=== PATIENT | female | born 1980 | race Caucasian/White ===

== ENCOUNTER 2023-09-14 11:05 | Outpatient (REF) | payer OTHER, SELFPAY ==
[2023-09-14 13:41] LABS: Hematocrit 27.7 % (37.0-47.0); Hemoglobin 7.1 g/dl (12.0-16.0); Mean Corpuscular HGB Conc 25.6 g/dl (31.0-35.0); Mean Corpuscular Hemoglobin 16.9 pg (27.0-33.0); Mean Corpuscular Volume 65.8 fL (80.0-98.0); NRBC Pct Auto 1.1 /100WBC (0.0-0.2); PLT CLUMP 1; Red Blood Count 4.21 X10*6/uL (4.20-5.50); Red Cell Distribution Width 20.7 % (11.0-16.0); White Blood Count 12.6 X10*3/uL (4.8-10.8)
[2023-09-14 14:01] LABS: Carbon Dioxide 22 mmol/L (22-29)
[2023-09-14 14:02] LABS: Mean Platelet Volume 10.1 fL (9.4-12.3); Platelet Count 343 X10*3/uL (160-400)
[2023-09-14 14:03] LABS: Anion Gap 14 (12-20); Blood Urea Nitrogen 8 mg/dL (9-16); Calcium 9.2 mg/dL (8.4-10.2); Chloride 106 mmol/L (96-108); Estimated Glomerular Filt Rate > 60; Glucose Random 91 mg/dL (60-115); Iron 26 mcg/dL (30-160); Percent Iron Saturation 7 % (15-50); Potassium 4.4 mmol/L (3.3-5.1); Sodium 138 mmol/L (135-145); Total Iron Binding Capacity 389 mcg/dL (228-428); Unsaturated Iron Binding 363 ug/dL
[2023-09-14 14:07] LABS: Atypical Lymph Absolute Manual 0.1 x10*3/uL; Atypical Lymphs Percent Manual 1 % (0-6); Band Neutrophils Percent 3 % (3-5); Basophils Abs Manual 0.3 X10*3/uL (0.0-0.2); Basophils Percent Manual 2 % (0-2); Eosinophils Absolute Manual 0.3 X10*3/uL (0.0-0.4); Eosinophils Percent Manual 2 % (0-4); Lymphocytes Absolute Manual 2.3 X10*3/uL (1.2-4.9); Lymphocytes Percent Manual 18 % (20-40); Metamyelocytes Absolute 0.4 X10*3/uL; Metamyelocytes Percent 3 %; Monocytes Absolute Manual 0.3 X10*3/uL (0.1-1.2); Monocytes Percent Manual 2 % (2-11); Neutrophils Absolute Manual 9.1 X10*3/uL (2.0-8.3); Neutrophils Percent Manual 69 % (45-73); Nucleated Red Blood Cells 4 /100WBC (0-0)
[2023-09-14 14:08] LABS: Hypochromasia 1+ (5-14) /OIF; Microcytosis 2+ (15-30) /OIF; Ovalocytes 1+ (5-14) /OIF; Polychromasia 1+ (0-2) /OIF; RBC Morphology NOTED; Schistocytes 1+ (0-2) /OIF; Tear Drop Cells 1+ (0-2) /OIF
[2023-09-14 14:09] LABS: Large Platelet PRESENT; Platelet Estimate NORMAL (NORMAL); Platelet Morphology Comment NOTED
[2023-09-14 14:19] LABS: Ferritin 7 ng/mL (10-250)
== END 2023-09-14 11:06 | disposition home or self-care (01) ==
LOC: HO.HHCL 11:05
PROVIDERS: Visit Provider Internal Medicine Geriatric Medicine
DX: D64.9 Anemia, unspecified (principal)
CPT/HCPCS: 36415; 80048; 82728; 83540; 85007; 85025; 85027

== ENCOUNTER 2023-09-21 14:43 | Outpatient (REF) | payer OTHER, SELFPAY ==
[2023-09-21 16:10] LABS: MANUAL DIFF FLAG NO
[2023-09-21 16:25] LABS: Basophils Absolute Auto 0.1 X10*3/uL (0.0-0.2); Basophils Percent Auto 0.6 % (0-2); Eosinophils Absolute Auto 0.2 X10*3/uL (0.0-0.4); Eosinophils Percent Auto 1.2 % (0-4); Hematocrit 28.6 % (37.0-47.0); Hemoglobin 7.3 g/dl (12.0-16.0); Imm Gran Abs Auto 0.09 X10*3/uL (0.00-0.03); Imm Gran Pct Auto 0.7 % (0.0-0.4); Lymphocytes Absolute Auto 2.4 X10*3/uL (1.2-4.9); Lymphocytes Percent Auto 19.9 % (20-40); Mean Corpuscular HGB Conc 25.5 g/dl (31.0-35.0); Mean Corpuscular Volume 66.5 fL (80.0-98.0); Mean Platelet Volume 10.4 fL (9.4-12.3); Monocytes Absolute Auto 0.6 X10*3/uL (0.1-1.2); Monocytes Percent Auto 4.9 % (2-11); NRBC Pct Auto 0.2 /100WBC (0.0-0.2); Neutrophils Absolute Auto 8.9 x10*3/uL (2.0-8.3); Neutrophils Percent Auto 72.7 % (45-73); Platelet Count 523 X10*3/uL (160-400); Red Cell Distribution Width 19.9 % (11.0-16.0); White Blood Count 12.3 X10*3/uL (4.8-10.8)
[2023-09-21 17:04] LABS: TSH reflex Free T4 0.66 uIU/mL (0.32-4.0)
== END 2023-09-21 14:44 | disposition home or self-care (01) ==
LOC: HO.HHCL 14:43
PROVIDERS: Visit Provider Nurse Practitioner Family
DX: D50.8 Other iron deficiency anemias (principal)
CPT/HCPCS: 36415; 84443; 85025

== ENCOUNTER → 2023-10-19 11:17 | Outpatient (BNV) | payer OTHER, SELFPAY | PROVIDERS: PCP Nurse Practitioner Family; Referring Provider Nurse Practitioner Family; Visit Provider Internal Medicine | DX: D50.9 Iron deficiency anemia, unspecified (principal) | CPT/HCPCS: 99204 ==

== ENCOUNTER 2024-09-09 13:09 | Outpatient (REF) | payer OTHER, SELFPAY ==
--- OUTSIDE RECORDS SUMMARY | 2024-09-09 14:40 | XMS_ITS | Encounter Summary ---
Author Organization [employer] Address [address] [place] [address] Care Team Providers Care Sales Agent Insurance Name Role Phone Edith Dominguez CLINICAL FIELD SPECIALIST Primary Care Provider [phone] Reason for Visit * Reason Comments Follow-up 3 month follow up Encounter Details Date Type Department Care Team ([facility] st Contact Info) Description 09/07/2024 9:15 AM EDT Office Visit Bariatric Surgery - [place] [address] [place] [address] Aleah Reynolds PA [address] [place] [address] Class 3 severe obesity due to excess calories with serious comorbidity and body mass index (BMI) of 45.0 to 49.9 in adult (CMS/HCC) (Primary Dx); Dysuria Social History Tobacco Use Types Packs/Day Years Used Date Smoking Tobacco: Never Smokeless Tobacco: Never Alcohol Use Standard Drinks/Week Comments Not Currently 0 (1 standard drink = 0.6 oz pur e alcohol) Comments Unknown Sex and Gender Information Value Date Recorded Sex Assigned at Not on file Legal Sex Female 4:47 PM EST Gender Identity Not on file Sexual Orientation Not on file documented as of this encounter Last Filed Vital Signs Vital Sign Reading Time Taken Comments Blood Pressure 156/86 09/07/2024 9:18 AM EDT Pulse 98 09/07/2024 9:18 AM EDT Temperature 36.6 ??C (97.8 ??F) 09/07/2024 9:18 AM ED T Respiratory Rate - - Oxygen Saturation - - Inhaled Oxygen Concentration - - Weight 103 kg (227 lb) 09/07/2024 9:18 AM EDT Height 149.9 cm (4' 11 ) 09/07/2024 9:18 AM EDT Body Mass Index 45.85 09/07/2024 9:18 AM EDT documented in this encounter Functional Status * Are you deaf or do you have serious difficulty hearing? Answer Date of Assessment Author No 08/29/2024 11:10 AM Lazaro Perez RN * Are you blind or do you have serious difficulty seeing, even when wearing glasses? Answer Date of Assessment Author No 08/29/2024 11:10 AM Lazaro Perez RN * Do you have serious difficulty walking or climbing stairs? Answer Date of Assessment Author No 08/29/2024 11:10 AM Lazaro Perez RN * Do you have serious difficulty dressing or bathing? Answer Date of Assessment Author No 08/29/2024 11:10 AM Lazaro Perez RN * Because of a physical, mental, or emotional condition, do you have serious difficulty doing errandsalone such as visiting the doctor? Answer Date of Assessment Author No 08/29/2024 11:10 AM Lazaro Perez RN documented as of this encounter Mental Status * Because of a physical, mental, or emotional condition, do you have serious difficulty concentrating, remembering, or making decisions? (5 years old or older) Answer Entry Date Author No 08/29/2024 11:10 AM Lazaro Perez RN documented in this encounter Ordered Prescriptions Prescription Sig Dispense Quantity Refills Last Filled Start Date End Date docusate sodium (Colace) 100 mg capsule Take 1 capsule (100 mg total) by mouth 2 (two) times a day if needed for constipation. 180 each 09/07/2024 documented in this encounter Progress Notes * MICHAEL Gaines - 09/07/2024 9:15 AM EDT Alva Rivera is a 44 y.o. year old female who presents for follow up regarding obesity. 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 Also noted to have leukocytosis of 16.5 with questionable UA Patient does complain of occasional dysuria Appointment in the office was on 07/05/2024 - 5 lbs since last appt She is increasing her Zepbound to 5 mg this week No nausea or vomiting No abdominal pain Feels well overall Continues to take multivitamins No other concerns or complaints Interested in: medication and or surgery Goals of Program: no specific goal weight in mind Self regeral Was in [facility] at the beginning of COVID Was supposed to have a sleeve Lost 25 lbs in the program Got scared due to COVID and stopped following up Previously taken Phentermine In and out of the hospital for heart palpitations Eating Habits: Eats late at night Big portion sizes Emotional eater Likes to eat spicy things - cox Salty, crackers chips Not big into dessert Water Crystal light Occasional Sprite Rare coffee Physical Activity: Limited Takes walks around the block occaisonally Sometimes goes to [employer] w/ sister Treadmill at home PMHx: 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 [place] but no formal test Medications: Amlodpine Lisinopril Atorvastatin PSHx: x4 Social Habits: No alcohol use No drugs Non smoker Body mass index is 45.85 kg/m??. ROS: GENERAL: No malaise, significant unintentional weight loss, fever, chills or night sweats. RESPIRATORY: No cough, wheezing or shortness of breath CARDIOVASCULAR: No chest pain, leg swelling or palpitations. GI: No abdominal discomfort, nausea, vomiting, or change in bowel habits. : No dysuria, frequency or incontinence. SKIN: No lesions, rash or itching. HEMATOLOGY/LYMPHOLOGY No prolonged bleeding, easy bruisability or swollen nodes. MUSCULOSKELETAL: No abnormalities. NEURO: No abnormalities. The remainder of the review of systems is noncontributory PAST MEDICAL HISTORY: Patient Active Problem List Diagnosis Allergic rhinitis Anemia Diabetes mellitus (CMS/HCC) Generalized anxiety disorder High blood pressure Insomnia Major depressive disorder Skin lesion Vitamin D deficiency Class 3 severe obesity due to excess calories with serious comorbidity and body mass index (BMI) of45.0 to 49.9 in adult ([facility]) PAST SURGICAL HISTORY: No past surgical history on file. SOCIAL HISTORY: Social History Tobacco Use Smoking status: Never Smokeless tobacco: Never Substance Use Topics Alcohol use: Not Currently FAMILY HISTORY: No family history on file. No family status information on file. MEDICATIONS: There are no discontinued medications. ACTIVE MEDICATIONS: No outpatient medications have been marked as taking for the 09/07/24 encounter (Office Visit) with MICHAEL Gaines. ALLERGIES: No Known Allergies PHYSICAL EXAM: Visit Vitals BP (!) 156/86 Pulse 98 Temp 36.6 ??C (97.8 ??F) (Temporal) Ht 1.499 m (59 ) Wt 103 kg (227 lb) BMI 45.85 kg/m?? Smoking Status Never BSA 1.95 m?? APPEARANCE: Alert and in no acute distress EYES: Conjunctiva normal and sclera normal and anicteric. LUNG: Chest no retractions. ABDOMEN: Soft, non-tender, without organomegaly or palpable masses. EXTREMITIES: Extremities warm and well perfused without clubbing, cyanosis, or edema. SKIN: Skin color and texture normal. No rashes or lesions. ASSESSMENT: 1. Class 3 severe obesity due to excess calories with serious comorbidity and body mass index (BMI)of 45.0 to 49.9 in adult ([facility]) PLAN: 1. Obesity - Continue on Zepbound Will titrate dose accordingly Reviewed side effects and expected weight loss Continue daily vitamin Follow up with relief pharmacist as needed Follow up in 8-12 weeks 2. Dysuria - Leukocytosis evident from ER visit on 08/29/2024 UA contaminated but could be mild UTI Repeat UA Medication and lab orders: No orders of the defined types were placed in this encounter. Other orders: None cc: RL Larsen documented in this encounter Plan of Treatment Upcoming Encounters Date Type Department Care Team (Late st Contact Info) Description 12/08/2024 9:15 AM EDT Office Visit Bariatric Surgery - [place] [address] [address] [facility] [address] [place] [address] Aleah Reynolds PA [address] [facility] [address] [place] [address] documented as of this encounter Visit Diagnoses Diagnosis Class 3 severe obesity due to excess calories with serious comorbidity and body mass index (BMI) of 45.0 to 49.9 in adult ([facility])- Primary Dysuria documented in this encounter Discontinued Medications Medication Sig Discontinue Reason Start Date End Da te semaglutide (Wegovy) 1.7 mg/0.75 mL injection pen Inject 1.7 mg under the skin every 7 (seven) days. 06/28/2024 09/07/2024 documented as of this encounter Care Teams Sales Agent Insurance Relationship Specialty Start Date End Date Edith Dominguez FNP [address] [place] [address] PCP - General Nurse Practitioner 09/07/24 documented as of this encounter
--- OUTSIDE RECORDS SUMMARY | 2024-09-09 14:40 | XMS_ITS | Clinical Summary ---
Author Organization 175 [facility] Address [address] [place] [phone] Phone Care Team Providers Care [employer] Agent Name Role Phone Edith Dominguez RL Primary Care Provider [phone] Allergies No known active allergies Medications ALBUTEROL INHL Inhale into the lungs. Active amLODIPine-steph rvastatin (CADUET) 10-10 mg per tablet Take 1 tablet by mouth 1 (one) time each day. Active ASCORBIC ACID, VITAMIN C, ORAL Take by mouth. Active lisinopriL (PRINIVIL,ZEST RIL) 20 mg tablet Take 1 tablet (20 mg total) by mouth 1 (one) time each day. Active traZODone (DESYREL) 50 mg tablet Take 1 Tablet by mouth at bedtime. Active tirzepatide, weight loss, (Zepbound) 2.5 mg/0.5 mL solution Inject 2.5 mg under the skin every 7 (seven) days. 2 mL 5 Active tirzepatide, weight loss, (Zepbound) 5 mg/0.5 mL injection Inject 0.5 mL (5 mg total) under the skin every 7 (seven) days. 2 mL 5 Active senna (SENOKOT) 8.6 mg tablet Take 1 tablet (8.6 mg total) by mouth 1 (one) time each day for 14 days. 14 each 5 09/13/19 25 Active docusate sodium (Colace) 100 mg capsule Take 1 capsule (100 mg total) by mouth 2 (two) times a day if needed for constipatio n. 180 each 5 12/07/19 25 Active semaglutide (Wegovy) 1.7 mg/0.75 mL injection pen Inject 1.7 mg under the skin every 7 (seven) days. 3 mL 4 09/08/19 25 Discontinued Active Problems Problem Noted Date Diagnosed Date Class 3 severe obesity due t o excess calories with serious comorbidity and body mass index (BMI) of 45.0 to 49.9 in adult 04/14/2024 Allergic rhinitis 06/15/2018 Anemia 06/15/2018 Diabetes mellitus 06/15/2018 Generalized anxiety disorder 06/15/2018 High blood pressure 06/15/2018 Insomnia 06/15/2018 Major depressive disorder 06/15/2018 Skin lesion 06/15/2018 Vitamin D deficiency 06/15/2018 Encounters Date Type Department Care Team Description 09/07/2024 9:15 AM EDT Office Visit Bariatric Surgery [address] [phone] Aleah Reynolds PA Class 3 severe obesity due to excess calories with serious comorbidity and body mass index (BMI) of 45.0 to 49.9 in adult ([facility]) (Primary Dx); Dysuria 08/29/2024 11:01 AM EST - 08/29/2024 4:11 PM EST Emergency [facility] Emergency [address] [place] [phone] Hina Ramos DO Fecal impaction ([facility]) (Primary Dx) Discharge Disposition: Home or Self Care 07/19/2024 Telephone Bariatric Surgery [address] [phone] Aleah Reynolds PA 07/05/2024 10:00 AM EST Office Visit Bariatric Surgery [address] [phone] Aleah Reynolds PA Class 3 severe obesity due to excess calories with serious comorbidity and body mass index (BMI) of 45.0 to 49.9 in adult (CMS/HCC) (Primary Dx) from Last 3 Months Medical History Medical History Date Comments Hypertension Anxiety Depression Asthma Social History Tobacco Use Types Packs/Day Years Used Date Smoking Tobacco: Never Smokeless Tobacco: Never Tobacco Cessation:Counseling Given: Not Answered Alcohol Use Standard Drinks/Week Comments Not Currently 0 (1 standard drink = 0.6 oz pur e alcohol) Comments Unknown Sex and Gender Information Value Date Recorded Sex Assigned at Not on file Legal Sex Female 4:47 PM EST Gender Identity Not on file Sexual Orientation Not on file Obstetrics History Last Filed Vital Signs Vital Sign Reading Time Taken Comments Blood Pressure 156/86 09/07/2024 9:18 AM EDT Pulse 98 09/07/2024 9:18 AM EDT Temperature 36.6 ??C (97.8 ??F) 09/07/2024 9:18 AM ED T Respiratory Rate 20 08/29/2024 2:32 PM EST Oxygen Saturation 98% 08/29/2024 2:32 PM EST Inhaled Oxygen Concentration - - Weight 103 kg (227 lb) 09/07/2024 9:18 AM EDT Height 149.9 cm (4' 11 ) 09/07/2024 9:18 AM EDT Body Mass Index 45.85 09/07/2024 9:18 AM EDT Plan of Treatment Upcoming Encounters Date Type Department Care Team (Late st Contact Info) Description 12/08/2024 9:15 AM EDT Office Visit Bariatric Surgery - [place] [address] [phone] Aleah Reynolds PA [address] [address] Health Maintenance Due Date Last Done Comments Breast Cancer Screening 1982 Diabetes: Annual Foot Exam 1992 Diabetes: Annual Retina Eye Exam 1992 Hepatitis B Vaccines (1 of 3 - 19+ 3-dose series) 2001 Pneumococcal Vaccine: Pediatrics (0 to 5 Years) and At-Risk Patients (6 to 64 Years) (1 of 2 - PCV) 2001 Cervical Cancer Screening: P ap Smear 2003 HIV Screening 05/28/2022 Hepatitis C Screening 05/28/2022 Medicare Annual Wellness Visit 05/28/2022 Social Influencers of Health Screening 05/28/2022 Diabetes: Annual Urine Albumin-Creatinine Ratio (uACR) 06/13/2022 DTaP,Tdap,and Td Vaccines (2 - Td or Tdap) 05/02/2023 05/02/2013 COVID-19 Vaccine (1 - 2023-2 5 season) 2024 Influenza Vaccine (#1) 2024 05/02/2013 Diabetes: Blood Sugar Contro l Test (HGBA1C) 05/20/2024 11/18/2023, 11/18/2023 Depression Screening 07/28/2024 07/28/2023 Diabetes: Annual GFR (Glomerular Filtration Rate) 08/29/2025 08/29/2024, 11/18/2023, 11/18/2023 Hypertension/CHF/CAD Annual BMP Blood Test 08/29/2025 08/29/2024, 11/18/2023, 11/18/2023 Cholesterol Screening (Lipid Panel) 11/17/2028 11/18/2023, 11/18/2023 HIB Vaccines Aged Out No longer eligi ble based on patient's age to complete this topic HPV Vaccines Aged Out No longer eligi ble based on patient's age to complete this topic Hepatitis A Vaccines Aged Out No long er eligible based on patient's age to complete this topic IPV Vaccines Aged Out No longer eligi ble based on patient's age to complete this topic MMR Vaccines Aged Out No longer eligi ble based on patient's age to complete this topic Meningococcal ACWY Vaccine Aged Out N o longer eligible based on patient's age to complete this topic Meningococcal B Vacine Aged Out No lo nger eligible based on patient's age to complete this topic RSV Immunization Patients Under 20 months Aged Out No longer eligible b ased on patient's age to complete this topic Varicella Vaccines Aged Out No longer eligible based on patient's age to complete this topic Procedures Procedure Name Priority Date/Time Associated Diagnosis Comments HOOKER URINE CULTURE TUBE Routine 09/08/2024 11:58 AM EDT Dysuria URINALYSIS WITH REFLEX MICROSCOPIC AND CULTURE Routine 09/08/2024 11:58 AM EDT Dysuria URINALYSIS WITH REFLEX MICROSCOPIC AND CULTURE Routine 09/08/2024 11:58 AM EDT Dysuria HOOKER URINE CULTURE TUBE STAT 08/29/2024 2:48 PM EST URINALYSIS WITH REFLEX MICROSCOPIC AND CULTURE STAT 08/29/2024 2:48 PM EST URINALYSIS WITH REFLEX MICROSCOPIC AND CULTURE STAT 08/29/2024 2:48 PM EST CULTURE URINE STAT 08/29/2024 2:[address] ABDOMEN PELVIS W CONTRAST STAT 08/29/2024 1:36 PM EST HCG, SERUM, QUALITATIVE STAT Add-on 08/29/2024 8:28 AM EST CBC WITH AUTO DIFFERENTIAL STAT 08/29/2024 8:28 AM EST COMPREHENSIVE METABOLIC PANEL STAT 08/29/2024 8:28 AM EST CBC AND DIFFERENTIAL STAT 08/29/2024 8:28 AM EST HEMOGLOBIN A1C Routine 11/18/2023 LIPID PANEL Routine 11/18/2023 from Last 3 Months or Most Recently Relevant to Health Maintenance Results * (ABNORMAL) Urinalysis with reflex microscopic and culture (09/08/2024 11:58 AM EDT) Only the most recent of2 resultswithin the time period is included. Specific [place] Urine 1.027 1.003 - 1.030 LAB URINALYSIS - AUTOMATED METHOD 09/08/2024 1:11 PM EDT [facility] pH, Urine 5.5 5.0 - 8.0 pH LAB URINALYSIS - AUTOMATED METHOD 09/08/2024 1:11 PM EDT [facility] Leukocytes, Urine Negative Negative LAB URINALYSIS - AUTOMATED METHOD 09/08/2024 1:11 PM EDT [facility] Nitrite, Urine Negative Negative LAB URINALYSIS - AUTOMATED METHOD 09/08/2024 1:11 PM EDT [facility] Protein, Urine Trace <=Trace mg/dL LAB URINALYSIS - AUTOMATED METHOD 09/08/2024 1:11 PM EDT [facility] Glucose, Urine Negative Negative mg/dL LAB URINALYSIS - AUTOMATED METHOD 09/08/2024 1:11 PM EDT [facility] Ketones, Urine Trace(A) Negative mg/dL LAB URINALYSIS - AUTOMATED METHOD 09/08/2024 1:11 PM [facility] Urobilinogen, Urine 1.0 0.2 - 1.0 mg/dL LAB URINALYSIS - AUTOMATED METHOD 09/08/2024 1:11 PM [facility] Bilirubin, Urine Negative Negative LAB URINALYSIS - AUTOMATED METHOD 09/08/2024 1:11 PM [facility] Blood, Urine Negative Negative LAB URINALYSIS - AUTOMATED METHOD 09/08/2024 1:11 PM [facility] Urine Urine specimen obtained by clean catch procedure / Unknown Non-blood Collection / Unknown 09/08/2024 11:58 AM EDT 09/08/2024 1:04 PM EDT us Aleah RODRIGUEZ LAB URINE ORDERABLES Final R esult [facility] [address] [place] [address], * Hooker urine culture tube (09/08/2024 11:58 AM EDT) Only the most recent of2 resultswithin the time period is included. Extra Tube Hold for add-ons. 09/08/2024 3:02 PM EDT [facility] Comment:Auto resulted. Urine Urine specimen obtained by clean catch procedure / Unknown Non-blood Collection / Unknown 09/08/2024 11:58 AM EDT 09/08/2024 1:04 PM EDT Aleah RODRIGUEZ LAB URINE ORDERABLES Final R esult Performing Organization Address [facility] [[email or web address]] Co de Phone Number [facility] [address] [place] [address], [place] [phone] * Culture urine (08/29/2024 2:48 PM EST) Culture, Urine >100,000 CFU/mL Mixed bacterial morphotypes present suggestive of possible contamination during collection. Suggest appropriate recollection if clinically indicated. 08/30/2024 9:57 AM EST [facility] Urine Urine specimen obtained by clean catch procedure / Unknown Non-blood Collection / Unknown 08/29/2024 2:48 PM EST 08/29/2024 3:30 PM EST Hina Ramos DO LAB MICROBIOLOGY - GENERA L ORDERABLES Final Result Performing Organization Address [facility] [place] [facility] de Phone Number [facility] [address] [place] [address], [place] [phone] * CT Abdomen Pelvis w Contrast (08/29/2024 1:36 PM EST) Anatomical Region Laterality Modality Body Computed Tomogra phy 08/29/2024 2:05 PM EST Impressions 08/29/2024 2:12 PM EST Prominent stool burden within the rectum with trace presacral stranding. ??Otherwise there is no acute infectious or inflammatory process. Focal midline lesion at the section scar is nonspecific but could represent scar endometriosis in the proper clinical setting. -------- FINAL REPORT -------- Dictated By: Bart Pak Dictated Date: 08/29/2024 14:05 ET Assigned Physician: Bart Pak Reviewed and Electronically Signed By: Bart Pak Signed Date: 08/29/2024 14:12 ET Workstation ID: [id number] Transcribed By: Self Edit Transcribed Date: 08/29/2024 14:05 ET Narrative 08/29/2024 2:12 PM EST PROCEDURE: CT ABDOMEN/PELVIS WITH CONTRAST INDICATION: Abdominal abscess/infection suspected TECHNIQUE: CT of the abdomen and pelvis following the intravenous administration of 90cc Isovue 370. Multiplanar reformats. The examination was performed utilizing dose reduction techniques. Total DLP 1182 COMPARISON: ??No priors available. FINDINGS: ?? LOWER THORAX: Lung bases are clear. HEPATOBILIARY: No focal liver lesions. No cholelithiasis or biliary duct dilatation. SPLEEN: No focal lesion. PANCREAS: No focal mass or ductal dilatation. ADRENALS: No nodules. KIDNEYS/URETERS: Punctate calculus in the lower pole of the right kidney. ??No hydronephrosis. PELVIC ORGANS/BLADDER: Prominent appearing uterus. ??No suspicious adnexal mass. ??Bladder is unremarkable. PERITONEUM / RETROPERITONEUM: No ascites or free air. No retroperitoneal lymphadenopathy. VESSELS: Scattered atherosclerotic calcifications throughout the aorta and its major branches. No aneurysm. GI TRACT: No bowel distention or wall thickening. ??Prominent stool burden in the rectum. ??Trace presacral stranding nonspecific but could represent developing stercoral colitis. ??Normal appendix. BONES AND SOFT TISSUES: There is bony fusion of L1-L2 with focal kyphotic angulation. At the scar there is a tiny focal masslike lesion measuring 2.8 x 4.6 cm. Procedure Note Bart Pak MD - 08/29/2024 PROCEDURE: CT ABDOMEN/PELVIS WITH CONTRAST INDICATION: Abdominal abscess/infection suspected TECHNIQUE: CT of the abdomen and pelvis following the intravenousadministration of 90cc Isovue 370. Multiplanar reformats. The examinationwas performed utilizing dose reduction techniques. Total DLP 1182 COMPARISON: No priors available. FINDINGS: LOWER THORAX: Lung bases are clear. HEPATOBILIARY: No focal liver lesions. No cholelithiasis or biliary ductdilatation. SPLEEN: No focal lesion. PANCREAS: No focal mass or ductal dilatation. ADRENALS: No nodules. KIDNEYS/URETERS: Punctate calculus in the lower pole of the right kidney.No hydronephrosis. PELVIC ORGANS/BLADDER: Prominent appearing uterus. No suspicious adnexalmass. Bladder is unremarkable. PERITONEUM / RETROPERITONEUM: No ascites or free air. No retroperitoneallymphadenopathy. VESSELS: Scattered atherosclerotic calcifications throughout the aorta andits major branches. No aneurysm. GI TRACT: No bowel distention or wall thickening. Prominent stool burdenin the rectum. Trace presacral stranding nonspecific but could representdeveloping stercoral colitis. Normal appendix. BONES AND SOFT TISSUES: There is bony fusion of L1-L2 with focal kyphoticangulation. At the scar there is a tiny focal masslike lesionmeasuring 2.8 x 4.6 cm. IMPRESSION: Prominent stool burden within the rectum with trace presacral stranding.Otherwise there is no acute infectious or inflammatory process. Focal midline lesion at the section scar is nonspecific but couldrepresent scar endometriosis in the proper clinical setting. -------- FINAL REPORT -------- Dictated By: Bart Pak Dictated Date: 08/29/2024 14:05 ET Assigned Physician: Bart Pak Reviewed and Electronically Signed By: Bart Pak Signed Date: 08/29/2024 14:12 ET Workstation ID: [id number] Transcribed By: Self Edit Transcribed Date: 08/29/2024 14:05 ET us Hina Ramos DO IMG CT PROCEDURES Final R esult * (ABNORMAL) CBC auto differential (08/29/2024 8:28 AM EST) WBC 16.5(H) 4.8 - 10.8 K/mcL LAB HEMETOLOGY METHOD 08/29/2024 9:[address] [facility] RBC 4.70 3.80 - 4.80 M/mcL LAB HEMETOLOGY METHOD 08/29/2024 9:[address] [facility] Hemoglobin 8.9(L) 11.5 - 16.0 g/dL LAB HEMETOLOGY METHOD 08/29/2024 9:[address] [facility] Hematocrit 33.8(L) 35.0 - 47.0 % LAB HEMETOLOGY METHOD 08/29/2024 9:[address] [facility] MCV 72.4(L) 79.0 - 98.0 FL LAB HEMETOLOGY METHOD 08/29/2024 9:[address] [facility] MCH 19.1(L) 27.0 - 32.0 pcg LAB HEMETOLOGY METHOD 08/29/2024 9:[address] [facility] MCHC 26.3(L) 32.0 - 37.0 g/dL LAB HEMETOLOGY METHOD 08/29/2024 9:[address] [facility] RDW 19.3(H) 11.0 - 15.0 % LAB HEMETOLOGY METHOD 08/29/2024 9:[address] [facility] Platelets 548(H) 130 - 400 K/mcL LAB HEMETOLOGY METHOD 08/29/2024 9:[address] [facility] MPV 10.3 7.0 - 11.0 FL LAB HEMETOLOGY METHOD 08/29/2024 9:[address] [facility] NRBC 0.1 <1.0 % LAB HEMETOLOGY METHOD 08/29/2024 9:[address] [facility] NRBC Absolute 0.02 <0.10 K/mcL LAB HEMETOLOGY METHOD 08/29/2024 9:[address] [facility] Neutrophils Relative 83.3 % LAB HEMETOLOGY METHOD 08/29/2024 9:[address] [facility] Lymphocytes Relative 11.1 % LAB HEMETOLOGY METHOD 08/29/2024 9:[address] [facility] Monocytes Relative 3.9 % LAB HEMETOLOGY METHOD 08/29/2024 9:[address] [facility] Eosinophils Relative 0.3 % LAB HEMETOLOGY METHOD 08/29/2024 9:[address] [facility] Basophils Relative 0.5 % LAB HEMETOLOGY METHOD 08/29/2024 9:[address] [facility] Immature Granulocytes Relative 0.9 % LAB HEMETOLOGY METHOD 08/29/2024 9:[address] [facility] Neutrophils Absolute 13.72(H) 1.50 - 7.00 K/mcL LAB HEMETOLOGY METHOD 08/29/2024 9:31 AM EST [facility] Lymphocytes Absolute 1.82 1.00 - 5.00 K/mcL LAB HEMETOLOGY METHOD 08/29/2024 9:[address] [facility] Monocytes Absolute 0.65 0.20 - 1.00 K/mcL LAB HEMETOLOGY METHOD 08/29/2024 9:[address] [facility] Eosinophils Absolute 0.05 0.00 - 0.50 K/mcL LAB HEMETOLOGY METHOD 08/29/2024 9:[address] [facility] Basophils Absolute 0.09 0.00 - 0.20 K/mcL LAB HEMETOLOGY METHOD 08/29/2024 9:[address] [facility] Immature Granulocytes Absolute 0.14(H) 0.00 - 0.03 K/mcL LAB HEMETOLOGY METHOD 08/29/2024 9:[address] [facility] Blood Venous blood specimen / Unknown Venipuncture / Unknown 08/29/2024 8:28 AM EST 08/29/2024 9:19 AM EST us Hina Ramos DO LAB BLOOD ORDERABLES Shaila l Result [facility] [address] [place] [address], * hCG, serum, qualitative (08/29/2024 8:28 AM EST) hCG Qual Negative Negative 08/29/2024 12:59 PM EST [facility] Blood Venous blood specimen / Unknown Venipuncture / Unknown 08/29/2024 8:28 AM EST 08/29/2024 9:19 AM EST Hina Ramos DO LAB BLOOD ORDERABLES Shaila l Result [facility] [address] [place] [address], * (ABNORMAL) Comprehensive metabolic panel (08/29/2024 8:28 AM EST) Sodium 139 133 - 145 mmol/L LAB CHEMISTRY METHOD 08/29/2024 9:[address] [facility] Potassium 4.3 3.5 - 5.5 mmol/L LAB CHEMISTRY METHOD 08/29/2024 9:[address] [facility] Chloride 108 96 - 110 mmol/L LAB CHEMISTRY METHOD 08/29/2024 9:[address] [facility] CO2 21 21 - 32 mmol/L LAB CHEMISTRY METHOD 08/29/2024 9:[address] [facility] Anion Gap 10 3 - 11 LAB CHEMISTRY METHOD 08/29/2024 9:[address] [facility] Glucose 94 70 - 100 mg/dL LAB CHEMISTRY METHOD 08/29/2024 9:[address] [facility] BUN 15 5 - 25 mg/dL LAB CHEMISTRY METHOD 08/29/2024 9:[address] [facility] Creatinine 0.52 0.50 - 1.10 mg/dL LAB CHEMISTRY METHOD 08/29/2024 9:[address] [facility] eGFR 119 >=60 mL/min/1. 73m2 LAB CHEMISTRY METHOD 08/29/2024 9:[address] [facility] Comment:Calculation based on the??Chronic Kidney Disease Epidemiology Collaboration (CKD-EPI) equation refit??without adjustment for race. BUN/Creatinine Ratio 28.8 LAB CHEMISTRY METHOD 08/29/2024 9:[address] [facility] Calcium 10.1 8.5 - 10.5 mg/dL LAB CHEMISTRY METHOD 08/29/2024 9:[address] [facility] AST (SGOT) 24 10 - 42 unit/L LAB CHEMISTRY METHOD 08/29/2024 9:[address] [facility] ALT (SGPT) 20 10 - 60 unit/L LAB CHEMISTRY METHOD 08/29/2024 9:[address] [facility] Alkaline Phosphatase 74 42 - 121 unit/L LAB CHEMISTRY METHOD 08/29/2024 9:[address] [facility] Total Protein 8.7(H) 6.0 - 8.0 g/dL LAB CHEMISTRY METHOD 08/29/2024 9:[address] [facility] Albumin 4.3 3.2 - 5.0 g/dL LAB CHEMISTRY METHOD 08/29/2024 9:[address] [facility] Total Bilirubin 0.7 0.0 - 1.4 mg/dL LAB CHEMISTRY METHOD 08/29/2024 9:[address] [facility] Blood Venous blood specimen / Unknown Venipuncture / Unknown 08/29/2024 8:28 AM EST 08/29/2024 9:19 AM EST Hina Ramos DO LAB BLOOD ORDERABLES Shaila l Result [facility] [address] [place] [address], * Hemoglobin A1c (11/18/2023) Hemoglobin A1C 5.1 <=6.5 % Blood Venous blood specimen / Unknown Historical Provider LAB BLOOD ORDERABLES Shaila l Result * (ABNORMAL) Lipid panel (11/18/2023) LDL/HDL Ratio 4 0 - 4 Triglycerides 196(A) 0 - 150 mg/dL Cholesterol 193 0 - 200 mg/dL HDL 53 >=40 mg/dL LDL Cholesterol 101(A) 0 - 100 mg/dL Blood Venous blood specimen / Unknown Historical Provider LAB BLOOD ORDERABLES Shaila l Result from Last 3 Months or Most Recently Relevant to Health Maintenance Insurance [facility] MEDICARE Member Subscriber Plan / Payer (Ef fective 2020-Present) Name:Alva Rivera Relation to Subscriber:Self Name:Alva Rivera Payer ID:[id number] Group ID:[id number] Type:Not on file Address: [facility] [address] [phone] Care Teams [employer] Agent Relationship Specialty Start Date End Date Edith Dominguez FNP [address] [place] [address] PCP - General Nurse Practitioner 09/07/24
--- OUTSIDE RECORDS SUMMARY | 2024-09-09 14:40 | XMS_ITS | Encounter Summary ---
Author Organization [facility] Address [address] [place] [address] Care Team Providers Care Emblem Drawer In Name Role Phone Edith Dominguez NP Primary Care Provider Encounter Details Date Type Department Care Team (Late st Contact Info) Description 07/28/2023 Abstract [facility] MEDICINE [address] [place], [place] [phone] Edith Dominguez NP [address] [place], [place] [phone] Social History Tobacco Use Types Packs/Day Years Used Date Smoking Tobacco: Never Alcohol Use Standard Drinks/Week Comments Never 0 (1 standard drink = 0.6 oz pur e alcohol) Depression Answer Date Recorded Patient Health Questionnaire-9 Score 22 07/28/2023 Patient Health Questionnaire-9 Score 22 07/28/2023 Last PHQ-9: Questionnaire Data Not on file 0 07/28/2023 Housing Stability Answer Date Recorded What is your housing situation today? I have gissellraúl thompson 07/28/[address] you li ve. Do you have problems with any of the following? None of the above 07/28/2023 Food Insecurity Answer Date Recorded Within the past 12 months, y ou worried that your food would run out before you got money to buy more: Never True 07/28/2023 Within the past 12 months,th e food you bought just didn't last and you didn't have enough money to get more: Never True Transportation Answer Date Recorded In the past 12 months, has l ack of transportation kept you from medical appts, meetings, work or from getting things needed for daily living? No 07/28/2023 Utilities Answer Date Recorded In the past 12 months, has t he electric, gas, oil or water company threatened to shut off services in your home? 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
--- OUTSIDE RECORDS SUMMARY | 2024-09-09 14:40 | XMS_ITS | Clinical Summary ---
Author Organization [facility] Address [address] [place] [address] Care Team Providers Care Insurance Plan Specialist Name Role Phone Rabia Antunez DO Primary Care Provider [phone] Allergies No known active allergies Medications Medication Sig Dispensed Refills Start Date End Date Status ferrous sulfate 325 (65 FE) MG tablet Take 325 mg by mouth 2 (two) times a day. 0 Active vitamin C (ASCORBIC ACID) 500 MG tablet Take 500 mg by mouth 2 (two) times a day. 2 times daily with ferrous sulfate on an empty stomach 0 Active Family History Medical History Relation Name Comments Diabetes Father pb Hypertension Father pb Anesthesia problems Mother maddy Diabetes Mother maddy Hypertension Mother maddy Relation Name Status Comments Father pb Alive Mother maddy Alive Social History Tobacco Use Types Packs/Day Years Used Date Smoking Tobacco: Never Smokeless Tobacco: Never Alcohol Use Standard Drinks/Week Comments No 0 (1 standard drink = 0.6 oz pur e alcohol) Sex and Gender Information Value Date Recorded Sex Assigned at Not on file Gender Identity Not on file Sexual Orientation Not on file Last Filed Vital Signs Vital Sign Reading Time Taken Comments Blood Pressure 146/90 04/12/2018 2:25 PM EDT Pulse 108 04/12/2018 2:25 PM EDT Temperature 37.1 ??C (98.8 ??F) 04/12/2018 2:25 PM ED T Respiratory Rate - - Oxygen Saturation - - Inhaled Oxygen Concentration - - Weight 106.1 kg (233 lb 12.8 oz) 04/12/2018 2:25 PM EDT Height 149.9 cm (4' 11 ) 04/12/2018 2:25 PM EDT Body Mass Index 47.22 04/12/2018 2:25 PM EDT Plan of Treatment Health Maintenance Due Date Last Done Comments Hepatitis B Vaccines (1 of 3 - 3-dose series) 1982 Hepatitis C Screening 1982 COVID-19 Vaccine (#1) 1982 Depression Screening 1994 Preventative Health Evaluation 2000 DTap / Tdap / Td (1 - Tdap) 2001 Cervical Cancer Screening (P ap Smear) 2003 Influenza Vaccine (#1) 2024 Pneumococcal Vaccine Aged Out No long er eligible based on patient's age to complete this topic RSV Ped < 20 months Aged Out No longe r eligible based on patient's age to complete this topic Care Teams Insurance Plan Specialist Relationship Specialty Start Date End Date Rabia Antunez DO [address] [place] [address] [phone] PCP - General Family Medicine 03/31/18
--- OUTSIDE RECORDS SUMMARY | 2024-09-09 14:41 | XMS_ITS | Encounter Summary ---
Author Organization [employer] Address [address] [facility] [address] [place] [address] Care Team Providers Care [place] Jailer Name Role Phone Edith Dominguez NP Primary Care Provider Reason for Visit * Reason Comments Med Change Request Encounter Details Date Type Department Care Team ([facility] Contact Info) Description 09/21/2023 Refill [facility] [address] [place], [place] [phone] Edith Dominguez NP [address] [place], [place] [phone] Other iron deficiency anemia Social History Tobacco Use Types Packs/Day Years [...] is your housing situation today? 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
--- OUTSIDE RECORDS SUMMARY | 2024-09-09 14:41 | XMS_ITS | Encounter Summary ---
Author Organization [facility] [employer] Address [address] [place] [address] Care Team Providers Care Firearms Specialist Name Role Phone Physician, Pcp Unknown Primary Care Provider Kimberly vailable Reason for Visit * Reason Comments Constipation Constipation x 3 day s Encounter Details Date Type Department Care Team (Late st Contact Info) Description 08/29/2024 11:01 AM EST - 08/29/2024 4:11 PM EST Emergency [facility] Emergency [address] [place] [id number] Hina Ramos, DO [address] [place] [address] Fecal impaction (CMS/HCC) (Primary Dx) Discharge Disposition: Home or Self Care Social History Tobacco Use Types Packs/Day Years [...] Sign Reading Time Taken Comments Blood Pressure 167/99 08/29/2024 2:32 PM EST Pulse 107 08/29/2024 2:32 PM EST Temperature 37.2 ??C (99 ??F) 08/29/2024 2:32 PM EST Respiratory Rate 20 08/29/2024 2:32 PM EST Oxygen Saturation 98% 08/29/2024 2:32 PM EST Inhaled Oxygen Concentration - - Weight 99.8 kg (220 lb) 08/29/2024 8:22 AM EST Height 149.9 cm (4' 11 ) 08/29/2024 8:22 AM EST Body Mass Index 44.43 08/29/2024 8:22 AM EST documented in this encounter Functional Status * [...] Lazaro Perez RN documented in this encounter Discharge Instructions * Discharge Instructions* Hina Ramos DO - 08/29/2024 3:49 PM EST Please take the senna as instructed. Please increase intake of vegetables and fruit. Stay hydrated. documented in this encounter Medications at Time of Discharge ALBUTEROL INHL Inhale into the lungs. amLODIPine-atorva statin (CADUET) 10-10 mg per tablet Take 1 tablet by mouth 1 (one) time each day. ASCORBIC ACID, VITAMIN C, ORAL Take by mouth. lisinopriL (PRINIVIL,ZESTRIL ) 20 mg tablet Take 1 tablet (20 mg total) by mouth 1 (one) time each day. senna (SENOKOT) 8.6 mg tablet Take 1 tablet (8.6 mg total) by mouth 1 (one) time each day for 14 days. 14 each 08/29/2024 09/12/2024 tirzepatide, weight loss, (Zepbound) 2.5 mg/0.5 mL solution Inject 2.5 mg under the skin every 7 (seven) days. 2 mL 07/21/2024 tirzepatide, weight loss, (Zepbound) 5 mg/0.5 mL injection Inject 0.5 mL (5 mg total) under the skin every 7 (seven) days. 2 mL 08/16/2024 traZODone (DESYREL) 50 mg tablet Take 1 Tablet by mouth at bedtime. semaglutide (Wegovy) 1.7 mg/0.75 mL injection pen Inject 1.7 mg under the skin every 7 (seven) days. 3 mL 06/28/2024 09/07/2024 documented as of this encounter Ordered Prescriptions Prescription Sig Dispense Quantity Refills Last Filled Start Date End Date senna (SENOKOT) 8.6 mg tablet Take 1 tablet (8.6 mg total) by mouth 1 (one) time each day for 14 days. 14 each 08/29/2024 09/12/2024 documented in this encounter Discharge Disposition Disposition Code Departure Means Destination Comment s Home or Self Care Pt aaox4, respirations are even and unlabored on room air, VSS. Pt to f/u with pcp about bp. Pt speaking in complete, clear full sentences. Pt skin warm dry and normal in appearance for age. Pt provided DC instructions including use of new RX meds, use of OTC meds for sx relief, need to f/u outpt with PCP and reasons to return to ED. Pt verbalized understanding, offers no questions/concerns. Pt ambulates with steady, independent gait. Pt and son leaving via uber documented in this encounter Progress Notes * Hari Good MD - 08/29/2024 10:00 AM EST 44-year-old female patient presents with complaint of abdominal pain and constipation for the last 3 days. Vital signs reviewed. Patient will require further evaluation in the emergency department. * Christina Encinas RN - 08/29/2024 8:15 AM EST Pt presents from home, reported abdominal pain with associated constipation, onset x 3 days- worsening per pt. No relief with OTC medications. Denies nausea, vomiting. + Dizziness. Alert and orientedx 3 * Hina Ramos DO - 08/29/2024 8:13 AM EST Emergency Medicine Note Patient Name: Alva Rivera Initial Evaluation: 08/29/2024 : 1980 Patient's PCP: Pcp Unknown Physician Emergency Physician: Hina Ramos DO History of Present Illness Chief Complaint: Chief Complaint Patient presents with Constipation Constipation x 3 days HPI: This is a 44-year-old female presented hospital for evaluation constipation for 3 days. Patient states she has a history of chromosomal disorder and constipation is frequent for her. She has attempted to take Dulcolax and MiraLAX without any alleviation of her constipation. Therefore she present to the ER for evaluation she is complaining of lower abdominal tenderness. She states she has some rest up coming out of her rectum. Patient denies any nausea or vomiting denies any fever. She states that she does feel lightheaded as well. History of hysterectomy in the past ROS: I have performed a ROS with the pertinent positives and negatives documented in the history ofpresent illness. Previous History Past Medical History: Diagnosis Date Anxiety Asthma Depression Hypertension History reviewed. No pertinent surgical history. Social History Tobacco Use Smoking status: Never Smokeless tobacco: Never Substance Use Topics Alcohol use: Not Currently Drug use: Not Currently No family history on file. has No Known Allergies. No current facility-administered medications on file prior to encounter. Current Outpatient Medications on File Prior to Encounter Medication Sig Dispense Refill ALBUTEROL INHL Inhale into the lungs. amLODIPine-atorvastatin (CADUET) 10-10 mg per tablet Take 1 tablet by mouth 1 (one) time each day. ASCORBIC ACID, VITAMIN C, ORAL Take by mouth. lisinopriL (PRINIVIL,ZESTRIL) 20 mg tablet Take 1 tablet (20 mg total) by mouth 1 (one) time each day. semaglutide (Wegovy) 1.7 mg/0.75 mL injection pen Inject 1.7 mg under the skin every 7 (seven) days. 3 mL 0 tirzepatide, weight loss, (Zepbound) 2.5 mg/0.5 mL solution Inject 2.5 mg under the skin every 7 (seven) days. 2 mL 0 tirzepatide, weight loss, (Zepbound) 5 mg/0.5 mL injection Inject 0.5 mL (5 mg total) under the skin every 7 (seven) days. 2 mL 0 traZODone (DESYREL) 50 mg tablet Take 1 Tablet by mouth at bedtime. Physical Exam ED Triage Vitals [08/29/24 0822] Temp Heart Rate Resp BP 36.9 ??C (98.4 ??F) (!) 118 18 (!) 163/92 SpO2 Temp Source Heart Rate Source Patient Position 95 % Oral -- -- BP Location FiO2 (%) -- -- General: Pleasant, no distress, interacting appropriately Head: Normacephalic, atraumatic ENT: oral mucosa moist, neck supple, no tracheal deviation Cardiovascular: tachycardic rate, regular rhythm, no murmurs, rubbing, gallops Respiratory: CTAB, no wheeze, rales, rhonchi Gastrointestinal: Soft, non distended, lower abdominal tenderness on palpation : Rectal exam no signs of impacted stool, no hemorrhoids on exam. Patient does appear to have a wart. Extremities: No limb pain or swelling, no calf tenderness Neurological: Awake and alert, no facial droop noted Skin: Warm and dry Psychiatric: Appropriate mood and thoughts Results Labs Reviewed COMPREHENSIVE METABOLIC PANEL - Abnormal Result Value Sodium 139 Potassium 4.3 Chloride 108 CO2 21 Anion Gap 10 Glucose 94 BUN 15 Creatinine 0.52 eGFR 119 BUN/Creatinine Ratio 28.8 Calcium 10.1 AST (SGOT) 24 ALT (SGPT) 20 Alkaline Phosphatase 74 Total Protein 8.7 (*) Albumin 4.3 Total Bilirubin 0.7 CBC WITH AUTO DIFFERENTIAL - Abnormal WBC 16.5 (*) RBC 4.70 Hemoglobin 8.9 (*) Hematocrit 33.8 (*) MCV 72.4 (*) MCH 19.1 (*) MCHC 26.3 (*) RDW 19.3 (*) Platelets 548 (*) MPV 10.3 NRBC 0.1 NRBC Absolute 0.02 Neutrophils Relative 83.3 Lymphocytes Relative 11.1 Monocytes Relative 3.9 Eosinophils Relative 0.3 Basophils Relative 0.5 Immature Granulocytes Relative 0.9 Neutrophils Absolute 13.72 (*) Lymphocytes Absolute 1.82 Monocytes Absolute 0.65 Eosinophils Absolute 0.05 Basophils Absolute 0.09 Immature Granulocytes Absolute 0.14 (*) URINALYSIS WITH REFLEX MICROSCOPIC AND CULTURE - Abnormal Specific [place] Urine >1.045 (*) pH, Urine 6.0 Leukocytes, Urine Small (*) Nitrite, Urine Negative Protein, Urine 100 (*) Glucose, Urine Negative Ketones, Urine Negative Urobilinogen, Urine 0.2 Bilirubin, Urine Negative Blood, Urine Large (*) RBC, Urine >100 (*) WBC, Urine 6 (*) Squamous Epithelial, Urine 100 (*) Non-Squamous Epithelial, Urine Rare Transitional epithelial cells. Bacteria, Urine Negative Hyaline Casts, Urine 0 HCG, SERUM, QUALITATIVE - Normal hCG Qual Negative CULTURE URINE CBC AND DIFFERENTIAL Narrative: The following orders were created for panel order CBC and differential. Procedure Abnormality Status --------- ------ CBC auto differential[[id number]] Abnormal Final result Please view results for these tests on the individual orders. URINALYSIS WITH REFLEX MICROSCOPIC AND CULTURE Narrative: The following orders were created for panel order Urinalysis with reflex microscopic and culture. Procedure Abnormality Status --------- ------ Urinalysis with reflex ...[[id number]] Abnormal Final result Hooker urine culture tube[[id number]] In process Please view results for these tests on the individual orders. Abnormal Labs Reviewed COMPREHENSIVE METABOLIC PANEL - Abnormal; Notable for the following components: Result Value Total Protein 8.7 (*) All other components within normal limits CBC WITH AUTO DIFFERENTIAL - Abnormal; Notable for the following components: WBC 16.5 (*) Hemoglobin 8.9 (*) Hematocrit 33.8 (*) MCV 72.4 (*) MCH 19.1 (*) MCHC 26.3 (*) RDW 19.3 (*) Platelets 548 (*) Neutrophils Absolute 13.72 (*) Immature Granulocytes Absolute 0.14 (*) All other components within normal limits URINALYSIS WITH REFLEX MICROSCOPIC AND CULTURE - Abnormal; Notable for the following components: Specific [place] Urine >1.045 (*) Leukocytes, Urine Small (*) Protein, Urine 100 (*) Blood, Urine Large (*) RBC, Urine >100 (*) WBC, Urine 6 (*) Squamous Epithelial, Urine 100 (*) All other components within normal limits CT Abdomen Pelvis w Contrast Final Result Prominent stool burden within the rectum with trace presacral stranding. Otherwise there is no acute infectious or inflammatory process. Focal midline lesion at the section scar is nonspecific but could represent scar endometriosis in the proper clinical setting. -------- FINAL REPORT -------- Dictated By: Bart Pak Dictated Date: 08/29/2024 14:05 ET Assigned Physician: Bart Pak Reviewed and Electronically Signed By: Bart Pak Signed Date: 08/29/2024 14:12 ET Workstation ID: [id number] Transcribed By: Self Edit Transcribed Date: 08/29/2024 14:05 ET I have discussed the incidental/abnormal imaging and/or lab abnormalities with the patient and haveinstructed them the need for further evaluation and workup with their primary care doctor. I have provided the patient with a paper copy of the abnormality. The laboratory results, imaging results and other diagnostic exam results were reviewed in the EMR. EKG Interpretation Critical Care Time None ? Medical Decision Making Medications sodium chloride 0.9 % bolus 1,000 mL (0 mL intravenous Stopped 08/29/24 1417) sodium chloride 0.9 % flush 10 mL (10 mL intravenous Given 08/29/24 1334) iopamidoL (ISOVUE-370) 370 mg iodine /mL (76 %) injection 90 mL (90 mL intravenous Given 08/29/24 1334) magnesium citrate solution 296 mL (296 mL oral Given 08/29/24 1506) sodium phosphate (FLEET) enema 133 mL (133 mL rectal Given 08/29/24 1453) acetaminophen (TYLENOL) tablet 1,000 mg (1,000 mg oral Given 08/29/24 1449) ketorolac (TORADOL) injection 15 mg (15 mg intravenous Given 08/29/24 1450) ED Course as of 08/29/24 1556 ThuAug 29, 2024 1214 This is a 44-year-old female presented hospital today for evaluation of constipation and lowerabdominal pain for the past 3 days. She is also complaining dizziness. Patient does have tachycardia 118. No signs of fever. Patient lab work does show elevated leukocytosis 16.5. Given these findings. Concern for possible infection. Obtain CT abdomen pelvis of patient abdomen. Will plan to rule out appendicitis. Or any intra-abdominal infection causing her pain. Bolus of IV fluid be initiated for the patient. [TC] 1554 Patient was able to have a bowel movement. She is feeling much better at this time. Patient UAdid not show any signs of UTI. Patient CMP is unremarkable, patient CBC does show elevation of leukocytosis. I suspect is a reactive reaction due to patient fecal impaction. Patient be discharged at this time with senna. Patient agrees understand this plan all questions were addressed. [TC] ED Course User Index [TC] Hina Ramos DO Clinical Impressions as of 08/29/241555 Fecal impaction ([facility]) Procedures Procedures Diagnosis 1. Fecal impaction (CMS/[facility]ER[facility]) Disposition Discharge ED Prescriptions Medication Sig Dispense Start Date End Date Auth. Provider senna (SENOKOT) 8.6 mg tablet Take 1 tablet (8.6 mg total) by mouth 1 (one) time each day for 14 days. 14 each 08/29/2024 09/12/2024 Hina Ramos DO Physician Attestation Hina Ramos DO 08/29/24 1157 Hina Ramos DO 08/29/24 1214 Hina Ramos DO 08/29/24 1556 documented in this encounter Plan of Treatment Upcoming Encounters Date Type Department Care Team (Late st Contact Info) Description 12/08/2024 9:15 AM EDT Office Visit Bariatric Surgery - [address] [place] [phone] Aleah Reynolds PA [address] [place] [address] documented as of this encounter Procedures Procedure Name Priority Date/Time Associated Diagnosis Comments URINALYSIS WITH REFLEX MICROSCOPIC AND CULTURE STAT 08/29/2024 2:48 PM EST [facility] URINE CULTURE TUBE STAT 08/29/2024 2:48 PM EST URINALYSIS WITH REFLEX MICROSCOPIC AND CULTURE STAT 08/29/2024 2:48 PM EST CULTURE URINE STAT 08/29/2024 2:[address] ABDOMEN PELVIS W CONTRAST STAT 08/29/2024 1:36 PM EST CBC WITH AUTO DIFFERENTIAL STAT 08/29/2024 8:28 AM EST CBC AND DIFFERENTIAL STAT 08/29/2024 8:28 AM EST HCG, SERUM, QUALITATIVE STAT Add-on 08/29/2024 8:28 AM EST COMPREHENSIVE METABOLIC PANEL STAT 08/29/2024 8:28 AM EST documented in this encounter Results * Culture urine (08/29/2024 2:48 PM EST) Culture, Urine >100,000 CFU/mL Mixed bacterial morphotypes present suggestive of possible contamination during collection. Suggest appropriate recollection if clinically indicated. 08/30/2024 9:57 AM EST [facility] Urine Urine specimen obtained by clean catch procedure / Unknown Non-blood Collection / Unknown 08/29/2024 2:48 PM EST 08/29/2024 3:30 PM EST us Hina Ramos DO LAB MICROBIOLOGY - GENERA L ORDERABLES Final Result [facility] [address] [place] [address], [place] [phone] * [facility]er urine culture tube (08/29/2024 2:48 PM EST) [facility] [address] Extra Tube Hold for add-ons. 08/29/2024 5:01 PM EST [facility] Comment:Auto resulted. Urine Urine specimen obtained by clean catch procedure / Unknown Non-blood Collection / Unknown 08/29/2024 2:48 PM EST 08/29/2024 3:11 PM EST Mando Adolfo Ramos DO LAB URINE ORDERABLES Shaila ki Result [facility] [address] [place] [address], [place] [phone] * (ABNORMAL) Urinalysis with reflex microscopic and culture (08/29/2024 2:48 PM EST) [facility] [address] Specific [place] Urine >1.045(H) 1.003 - 1.030 LAB URINALYSIS - AUTOMATED METHOD 08/29/2024 3:30 PM [facility] pH, Urine 6.0 5.0 - 8.0 pH LAB URINALYSIS - AUTOMATED METHOD 08/29/2024 3:30 PM [facility] Leukocytes, Urine Small(A) Negative LAB URINALYSIS - AUTOMATED METHOD 08/29/2024 3:30 PM [facility] Nitrite, Urine Negative Negative LAB URINALYSIS - AUTOMATED METHOD 08/29/2024 3:30 PM [facility] Protein, Urine 100(A) <=Trace mg/dL LAB URINALYSIS - AUTOMATED METHOD 08/29/2024 3:30 PM [facility] Glucose, Urine Negative Negative mg/dL LAB URINALYSIS - AUTOMATED METHOD 08/29/2024 3:30 PM [facility] Ketones, Urine Negative Negative mg/dL LAB URINALYSIS - AUTOMATED METHOD 08/29/2024 3:30 PM [facility] Urobilinogen , Urine 0.2 0.2 - 1.0 mg/dL LAB URINALYSIS - AUTOMATED METHOD 08/29/2024 3:30 PM [facility] Bilirubin, Urine Negative Negative LAB URINALYSIS - AUTOMATED METHOD 08/29/2024 3:30 PM [facility] Blood, Urine Large(A) Negative LAB URINALYSIS - AUTOMATED METHOD 08/29/2024 3:30 PM [facility] RBC, Urine >100(H) 0 - 4 /HPF 08/29/2024 3:30 PM [facility] WBC, Urine 6(H) 0 - 4 /HPF 08/29/2024 3:30 PM [facility] Squamous Epithelial, Urine 100(H) 0 - 60 /LPF 08/29/2024 3:30 PM [facility] Non-Squamous Epithelial, Urine Rare Transitional epithelial cells. /LPF 08/29/2024 3:30 PM [facility] Bacteria, Urine Negative Negative /HPF 08/29/2024 3:30 PM [facility] Hyaline Casts, Urine 0 0 - 3 /LPF 08/29/2024 3:30 PM [facility] Urine Urine specimen obtained by clean catch procedure / Unknown Non-blood Collection / Unknown 08/29/2024 2:48 PM EST 08/29/2024 3:11 PM EST us Hina Ramos DO LAB URINE ORDERABLES Shaila l Result [facility] [address] [place] [address], [place] [phone] * CT Abdomen Pelvis w Contrast (08/29/2024 [...] Signed Date: 08/29/2024 14:12 ET Workstation ID: [id number] Transcribed By: Self Edit Transcribed Date: 08/29/2024 [...] Signed Date: 08/29/2024 14:12 ET Workstation ID: [id number] Transcribed By: Self Edit Transcribed Date: 08/29/2024 14:05 ET us Hina Ramos DO IMG CT PROCEDURES Final R esult * hCG, serum, qualitative (08/29/2024 8:28 AM EST) hCG Qual Negative Negative 08/29/2024 12:59 PM [facility] Blood Venous blood specimen / Unknown Venipuncture / Unknown 08/29/2024 8:28 AM EST 08/29/2024 9:19 AM EST us Hina Ramos DO LAB BLOOD ORDERABLES Shaila l Result [facility] [address] [place] [address], * (ABNORMAL) CBC auto differential (08/29/2024 8:28 AM EST) WBC 16.5(H) 4.8 - 10.8 K/mcL LAB HEMETOLOGY METHOD 08/29/2024 9:31 AM [facility] RBC 4.70 3.80 - 4.80 [facility] LAB HEMETOLOGY METHOD 08/29/2024 9:31 AM [facility] Hemoglobin 8.9(L) 11.5 - 16.0 g/dL LAB HEMETOLOGY METHOD 08/29/2024 9:31 AM [facility] Hematocrit 33.8(L) 35.0 - 47.0 % LAB HEMETOLOGY METHOD 08/29/2024 9:31 AM [facility] MCV 72.4(L) 79.0 - 98.0 FL LAB HEMETOLOGY METHOD 08/29/2024 9:31 AM [facility] MCH 19.1(L) 27.0 - 32.0 pcg LAB HEMETOLOGY METHOD 08/29/2024 9:31 AM [facility] MCHC 26.3(L) 32.0 - 37.0 g/dL LAB HEMETOLOGY METHOD 08/29/2024 9:31 AM [facility] RDW 19.3(H) 11.0 - 15.0 % LAB HEMETOLOGY METHOD 08/29/2024 9:31 AM [facility] Platelets 548(H) 130 - 400 K/mcL LAB HEMETOLOGY METHOD 08/29/2024 9:31 AM [facility] MPV 10.3 7.0 - 11.0 FL LAB HEMETOLOGY METHOD 08/29/2024 9:31 AM [facility] NRBC 0.1 <1.0 % LAB HEMETOLOGY METHOD 08/29/2024 9:31 AM [facility] NRBC Absolute 0.02 <0.10 K/mcL LAB HEMETOLOGY METHOD 08/29/2024 9:31 AM [facility] Neutrophils Relative 83.3 % LAB HEMETOLOGY METHOD 08/29/2024 9:31 AM [facility] Lymphocytes Relative 11.1 % LAB HEMETOLOGY METHOD 08/29/2024 9:31 AM [facility] Monocytes Relative 3.9 % LAB HEMETOLOGY METHOD 08/29/2024 9:31 AM [facility] Eosinophils Relative 0.3 % LAB HEMETOLOGY METHOD 08/29/2024 9:31 AM [facility] Basophils Relative 0.5 % LAB HEMETOLOGY METHOD 08/29/2024 9:31 AM [facility] Immature Granulocytes Relative 0.9 % LAB HEMETOLOGY METHOD 08/29/2024 9:31 AM [facility] Neutrophils Absolute 13.72(H) 1.50 - 7.00 K/mcL LAB HEMETOLOGY METHOD 08/29/2024 9:31 AM [facility] Lymphocytes Absolute 1.82 1.00 - 5.00 K/mcL LAB HEMETOLOGY METHOD 08/29/2024 9:31 AM [facility] Monocytes Absolute 0.65 0.20 - 1.00 K/mcL LAB HEMETOLOGY METHOD 08/29/2024 9:31 AM [facility] Eosinophils Absolute 0.05 0.00 - 0.50 [facility] HEMETOLOGY METHOD 08/29/2024 9:31 AM EST [facility] Basophils Absolute 0.09 0.00 - 0.20 [facility] LAB HEMETOLOGY METHOD 08/29/2024 9:31 AM EST [facility] Immature Granulocytes Absolute 0.14(H) 0.00 - 0.03 [facility] LAB HEMETOLOGY METHOD 08/29/2024 9:31 AM EST [facility] Blood Venous blood specimen / Unknown Venipuncture / Unknown 08/29/2024 8:28 AM EST 08/29/2024 9:19 AM EST us Hina Pizanony Richard DO LAB BLOOD ORDERABLES Shaila l Result [facility] [address] [place] [address], * (ABNORMAL) Comprehensive metabolic panel (08/29/2024 8:28 AM EST) Sodium 139 133 - 145 mmol/L LAB CHEMISTRY METHOD 08/29/2024 9:53 AM [facility] Potassium 4.3 3.5 - 5.5 mmol/L LAB CHEMISTRY METHOD 08/29/2024 9:53 AM [facility] Chloride 108 96 - 110 mmol/L LAB CHEMISTRY METHOD 08/29/2024 9:53 AM [facility] CO2 21 21 - 32 mmol/L LAB CHEMISTRY METHOD 08/29/2024 9:53 AM [facility] Anion Gap 10 3 - 11 LAB CHEMISTRY METHOD 08/29/2024 9:53 AM [facility] Glucose 94 70 - 100 mg/dL LAB CHEMISTRY METHOD 08/29/2024 9:53 AM [facility] BUN 15 5 - 25 mg/dL LAB CHEMISTRY METHOD 08/29/2024 9:53 AM [facility] Creatinine 0.52 0.50 - 1.10 mg/dL LAB CHEMISTRY METHOD 08/29/2024 9:53 AM [facility] eGFR 119 >=60 mL/min/1. 73m2 LAB CHEMISTRY METHOD 08/29/2024 9:53 AM [facility] Comment:Calculation based on the??Chronic Kidney Disease Epidemiology Collaboration (CKD-EPI) equation refit??without adjustment for race. BUN/Creatinine Ratio 28.8 LAB CHEMISTRY METHOD 08/29/2024 9:53 AM [facility] Calcium 10.1 8.5 - 10.5 mg/dL LAB CHEMISTRY METHOD 08/29/2024 9:53 AM [facility] AST (SGOT) 24 10 - 42 unit/L LAB CHEMISTRY METHOD 08/29/2024 9:53 AM [facility] ALT (SGPT) 20 10 - 60 unit/L LAB CHEMISTRY METHOD 08/29/2024 9:53 AM [facility] Alkaline Phosphatase 74 42 - 121 unit/L LAB CHEMISTRY METHOD 08/29/2024 9:53 AM [facility] Total Protein 8.7(H) 6.0 - 8.0 g/dL LAB CHEMISTRY METHOD 08/29/2024 9:53 AM [facility] Albumin 4.3 3.2 - 5.0 g/dL LAB CHEMISTRY METHOD 08/29/2024 9:53 AM [facility] Total Bilirubin 0.7 0.0 - 1.4 mg/dL LAB CHEMISTRY METHOD 08/29/2024 9:53 AM [facility] Blood Venous blood specimen / Unknown Venipuncture / Unknown 08/29/2024 8:28 AM EST 08/29/2024 9:19 AM EST Hina Ramos DO LAB BLOOD ORDERABLES Shaila ki Result [facility] [address] [place] [address], documented in this encounter Visit Diagnoses Diagnosis Fecal impaction (CMS/HCC)- Primary Other impaction of intestine documented in this encounter Administered Medications Inactive Administered Medications - up to 3 most recent administrations Medication Order MAR Action Action Date Dose Rate Site acetaminophen (TYLENOL) tablet 1,000 mg 1,000 mg, oral, Once, On Thu08/29/24 at 1434, For 1 dose Given 08/29/2024 2:49 PM EST 1,000 mg iopamidoL (ISOVUE-370) 370 mg iodine /mL (76 %) injection 90 mL 90 mL, intravenous, Once in imaging, Starting on Thu08/29/24 at 1329, For 1 dose Given 08/29/2024 1:34 PM EST 90 mL ketorolac (TORADOL) injection 15 mg 15 mg, intravenous, Once, On Thu08/29/24 at 1434, For 1 dose Given 08/29/2024 2:50 PM EST 15 mg magnesium citrate solution 296 mL 296 mL, oral, Once, On Thu08/29/24 at 1431, For 1 dose Given 08/29/2024 3:06 PM EST 296 mL sodium chloride 0.9 % bolus 1,000 mL 1,000 mL, intravenous, at 2,000 mL/hr, Administer over 30 Minutes, Once, On Thu08/29/24 at 1159, For 1 dose New Bag 08/29/2024 12:31 PM EST 1,000 mL 2000 mL/hr sodium chloride 0.9 % flush 10 mL 10 mL, intravenous, Once, On Thu08/29/24 at 1331, For 1 dose Given 08/29/2024 1:34 PM EST 10 mL sodium phosphate (FLEET) enema 133 mL 133 mL, rectal, Once, On Thu08/29/24 at 1431, For 1 dose Given 08/29/2024 2:53 PM EST 133 mL documented in this encounter Active and Recently Administered Medications Times are shown in EST. Scheduled Medication Order 08/27/2024 08/28/2024 08/29/2024 acetaminophen (TYLENOL) tablet 1,000 mg (COMPLETED) 1,000 mg, oral, Once, On Thu08/29/24 at 1434, For 1 dose 1449 (Given - Provid er: Teresa Galeas RN) iopamidoL (ISOVUE-370) 370 mg iodine /mL (76 %) injection 90 mL (COMPLETED) 90 mL, intravenous, Once in imaging, Starting on Thu08/29/24 at 1329, For 1 dose 1334 (Given - Provid er: Aguila Oropeza) ketorolac (TORADOL) injection 15 mg (COMPLETED) 15 mg, intravenous, Once, On Thu08/29/24 at 1434, For 1 dose 1450 (Given - Provid er: Teresa Galeas RN) magnesium citrate solution 296 mL (COMPLETED) 296 mL, oral, Once, On Thu08/29/24 at 1431, For 1 dose 1506 (Given - Provid er: Teresa Galeas RN) sodium chloride 0.9 % bolus 1,000 mL (COMPLETED) 1,000 mL, intravenous, at 2,000 mL/hr, Administer over 30 Minutes, Once, On Thu08/29/24 at 1159, For 1 dose 1231 (New Bag - Prov ider: Lazaro Subramanian RN)1417 (Stopped - Provider: Teresa Galeas RN) sodium chloride 0.9 % flush 10 mL (COMPLETED) 10 mL, intravenous, Once, On Thu08/29/24 at 1331, For 1 dose 1334 (Given - Provid er: Aguila Oropeza) sodium phosphate (FLEET) enema 133 mL (COMPLETED) 133 mL, rectal, Once, On Thu08/29/24 at 1431, For 1 dose 1453 (Given - Provid er: Teresa Galeas RN) documented in this encounter Orders Medications Ordered That George ht Not Have Been Administered Count Last Ordered Date First Ordered Date bisacodyL (DULCOLAX) suppository 10 mg 1 magnesium citrate solution 148 mL 1 025 documented in this encounter Care Teams Firearms Specialist Relationship Specialty Start Date End Date Physician, Pcp Unknown PCP - General 08/29/24 09/06/24 documented as of this encounter
--- OUTSIDE RECORDS SUMMARY | 2024-09-09 14:41 | XMS_ITS | Encounter Summary ---
Author Organization [facility] Address [address] [place] [address] Care Team Providers Care Protozoologist Name Role Phone Rabia Antunez DO Primary Care Provider Encounter Details Date Type Department Care Team (Late st Contact Info) Description 07/19/2024 Telephone Bariatric Surgery [facility] [address] [phone] Aleah Reynolds PA [address] [facility] [address] [facility] [address] [place] [address] Social History Tobacco Use Types Packs/Day Years Used Date Smoking Tobacco: Never Assessed Comments Unknown Sex and Gender Information Value Date Recorded Sex Assigned at Not on file Legal Sex Female 4:47 PM EST Gender Identity Not on file Sexual Orientation Not on file documented as of this encounter Progress Notes * Kate Coates MA - 07/19/2024 2:04 PM EST Pt called stated that the ins is stating that they did not receive enough info to cover pt zepound in the prior auth. Pt would like a call back on what the next step would be to get her meds. documented in this encounter Plan of Treatment Upcoming Encounters Date Type Department Care Team (Late st Contact Info) Description 12/08/2024 9:15 AM EDT Office Visit Bariatric Surgery - [facility] [address] [facility] [address] [place] [phone] Aleah Reynolds PA [address] [facility] [address] [place] [address] documented as of this encounter Visit Diagnoses Not on filedocumented in this encounter Care Teams Protozoologist Relationship Specialty Start Date End Date Rabia Antunez DO [address] [place], [place] PCP - General Family Medicine 03/31/18 08/28/24 documented as of this encounter
--- OUTSIDE RECORDS SUMMARY | 2024-09-09 14:41 | XMS_ITS | Clinical Summary ---
Author Organization [employer] Address [address] [facility] 7[address] [place] [address] Care Team Providers Care Apple Picker Name Role Phone AngelicaEdith XAVI Primary Care Provider [phone] Allergies No known active allergies Medications * This document contains information received from the source organization and may not represent a complete record from that organization. albuterol (2.5 MG/3ML) 0.083% nebulizer solution Take 3 mL (2.5 mg) by nebulization every 6 (six) hours if needed for wheezing. 75 mL 11 4 09/14/19 25 Active lisinopril (Prinivil) 20 MG tabletIndicatio ns:Hypertension , unspecified type Take 1 tablet (20 mg) by mouth Once per day. 90 tablet 3 4 10/26/19 25 Active escitalopram (Lexapro) 5 MG tabletIndicatio ns:LYNDA (generalized anxiety disorder) TAKE 1 TABLET BY MOUTH EVERY DAY IN THE MORNING 90 tablet 1 4 Active Ascorbic Acid (vitamin C) 500 MG tabletIndicatio ns:Other iron deficiency anemia TAKE 1 TABLET (500 MG) BY MOUTH EVERY OTHER DAY. 45 tablet 4 Active amLODIPine (Norvasc) 10 MG tabletIndicatio ns:Hypertension , unspecified type TAKE 1 TABLET BY MOUTH EVERY DAY IN THE MORNING 90 tablet 4 Active ferrous gluconate (Fergon) 324 (38 Fe) MG tabletIndicatio ns:Other iron deficiency anemia TAKE 1 TABLET BY MOUTH EVERY OTHER DAY WITH VITAMIN C 45 tablet 1 4 Active traZODone (Desyrel) 50 MG tabletIndicatio ns:Psychophysio logical insomnia TAKE 1 TABLET BY MOUTH EVERYDAY AT BEDTIME 90 tablet 1 4 Active Active Problems Problem Noted Date Diagnosed Date Gestational diabetes 04/09/2024 Lupus anticoagulant disorder 04/09/2024 Recurrent loss 04/09/2024 Status post delivery 04/09/2024 Morbid obesity 04/09/2024 Uterine leiomyoma 10/25/2023 Assessment & Plan (10/27/2023 5:31 PM EDT): Referral to hazardous materials handler , pevlic ultrasound demonstrates fibroids and thickened endometrium LYNDA (generalized anxiety disorder) 09/21/2023 Assessment & Plan (10/27/2023 5:34 PM EDT): Tolerating escitalopram, add trazodone prn for sleep Assessment & Plan (10/06/2023 11:05 AM EDT): Tolerating lexapro, open to talk therapy but declines in person consultation today, Referred for ibh Assessment & Plan (09/21/2023 6:43 PM EDT): Pt declines IBH today, but does endorse sig stressors and hx tolerated SSRI at 5 mg. Initiate lexapro 5 mg. Medication Indications, side effects and duration of therapy reviewed, pt aware to call clinic for worsening symptoms or failure to resolve Drug-induced constipation 09/21/2023 Assessment & Plan (09/21/2023 6:43 PM EDT): Colace ordered Class 3 severe obesity due t o excess calories without serious comorbidity with body mass index (BMI) of 45.0 to 49.9 in adult 09/21/2023 Assessment & Plan (10/27/2023 5:32 PM EDT): Will address at follow up, likely add glp-1 Assessment & Plan (10/06/2023 11:04 AM EDT): Motivated to re engage with weight loss, considering pharmacologic support as well as potential bariatric surgery. Continue conversation Meds not adjusted today, as pt is amid work up for anemia Assessment & Plan (09/21/2023 6:45 PM EDT): Pt and sister attribute this to stress eating, start SSRI, Hypertension 09/14/2023 Assessment & Plan (10/27/2023 5:31 PM EDT): Above goal today, add lisinopril 20 mg Assessment & Plan (10/06/2023 11:03 AM EDT): Tolerating amlodipine, bp above goal of <140/<90 Increase to 10 mg , update for any side effects or new symptoms Assessment & Plan (09/21/2023 6:40 PM EDT): Above goal, pt denies symptoms. Rtc in 2 weeks and will increase amlodipine at that visit, todays focus was primarily around anemia and anxiety management Anemia 09/14/2023 Assessment & Plan (10/27/2023 5:32 PM EDT): Now in care with hematology, had iv iron infusion Assessment & Plan (10/06/2023 11:04 AM EDT): Tolerating oral iron, stable Assessment & Plan (09/21/2023 6:42 PM EDT): Ultrasound ordered, start er iron as pt is prone to constipation, added colace, take every other day with vitamin c Labs ordered today Rtc in 2 weeks If bleeding increases or pt develops new symptoms, advised immediate evaluation Excessive bleeding in premenopausal period 09/13 Assessment & Plan (10/06/2023 11:03 AM EDT): Upcoming consultation with hazardous materials handler, reviewed hormonal options for menstrual bleeding management Assessment & Plan (09/21/2023 6:43 PM EDT): Reviewed potential sources, pt declines WAISTLINE JOINER referral today until imaging completed. If DUB is source of bleeding, reviewed options for management, Rtc in 2 weeks Asthma with status asthmaticus 09/14/2023 Mild intellectual disabilities 07/28/2023 Overview (07/28/2023): per pt report Encounters Date Type Department Care Team Description 09/09/2024 11:45 AM EDT Office Visit [facility] MED[facility]INE [address] [place] [address] Carolina Flores FNP Leukocytosis, unspecified type (Primary Dx); Iron deficiency anemia, unspecified iron deficiency anemia type 09/09/2024 Travel 09/07/2024 Telephone [facility] [address] [place] [address] Edith Dominguez NP Nurse Triage from Last 3 Months Immunizations Name Administration Dates Next Due Influenza, IIV3, injectable 05/02/2013 Tdap 05/02/2013 Family History Medical History Relation Name Comments Hypertension Father Diabetes Mother Hypertension Mother Relation Name Status Comments Father Mother Social History Tobacco Use Types Packs/Day Years Used Date Smoking Tobacco: Never Tobacco Cessation:Counseling Given: Not Answered Alcohol Use Standard Drinks/Week Comments Never 0 [...] 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 Not on file Not on file Last Filed Vital Signs Vital Sign Reading Time Taken Comments Blood Pressure 165/98 09/09/2024 12:11 PM EDT Pulse 100 09/09/2024 12:11 PM EDT Temperature 36.9 ??C (98.4 ??F) 09/09/2024 12:11 PM E DT Respiratory Rate 20 09/09/2024 12:11 PM EDT Oxygen Saturation 99% 09/09/2024 12:11 PM EDT Inhaled Oxygen Concentration - - Weight 105 kg (231 lb 6.4 oz) 09/09/2024 12:11 P M EDT Height 149.9 cm (4' 11 ) 09/09/2024 12:11 PM EDT Body Mass Index 46.74 09/09/2024 12:11 PM EDT Plan of Treatment Health Maintenance Due Date Last Done Comments HIV Screening 1982 Lipid Panel 1982 Alcohol/Substance Use Screening 1994 Family Planning (PISQ) 1997 Hepatitis C Screening 2000 Hepatitis B Vaccines (1 of 3 - 19+ 3-dose series) 2001 Pneumococcal Vaccine: Pediatrics (0 to 5 Years) and At-Risk Patients (6 to 49) Years) (1 of 2 - PCV) 2001 Pap Smear 2003 Cervical Cancer Screening 2012 HPV/Cotest 2012 Mammogram 2022 DTaP/Tdap/Td Vaccines (2 - T d or Tdap) 05/02/2023 05/02/2013 Depression Monitoring (PHQ-9) 01/26/2024, 07/28/2023 COVID-19 Vaccine ( - 2023-2 5 season) 2024 Influenza Vaccine (#1) 2024 05/02/2013 Depression Screening 07/28/2024 07/28/2023, 07/28/2023 SDOH Screening 07/28/2024 07/28/2023 Tobacco Screening 10/25/2024 10/26/2023 Zoster Vaccines (1 of 2) 2032 RSV Patients and Patients Aged 60 years or older (1 - 1-dose 75+ series) 2057 HIB Vaccines Aged Out No longer eligi [...] patient's age to complete this topic Meningococcal Vaccine Aged Out No aaron carissa eligible based on patient's age to complete this topic RSV under 20 months Aged Out No longe r eligible based on patient's age to complete this topic Rotavirus Vaccines Aged Out No longer eligible based on patient's age to complete this topic Insurance - [employer] Care Teams Apple Picker Relationship Specialty Start Date End Date Edith Dominguez NP [address] [place] [id number] PCP - General Family Medicine 07/28/23
--- OUTSIDE RECORDS SUMMARY | 2024-09-09 14:41 | XMS_ITS | Encounter Summary ---
Author Organization [employer] Address [address] [facility] 7[address] [place] [address] Care Team Providers Care Attorney Name Role Phone AngelicaEdith XAVI Primary Care Provider [phone] Reason for Visit * Reason Comments sick visit Encounter Details Date Type Department Care Team ([facility] st Contact Info) Description 09/09/2024 11:45 AM EDT Office Visit [facility] MEDICINE [address] [place], [place] [phone] [facility] [address] [place], [place] [phone] Leukocytosis, unspecified type (Primary Dx); Iron deficiency anemia, unspecified iron deficiency anemia type Social History Tobacco Use Types Packs/Day Years [...] 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 Not on file Not [...] Mass Index 46.74 09/09/2024 12:11 PM EDT documented in this encounter Plan of Treatment Scheduled Orders Name Type Priority Associated Diagnoses Orde r Schedule CBC auto differential Lab Routine Iron deficiency anemia, unspecified iron deficiency anemia type Expected: 09/09/2024 (Approximate), Expires: 09/09/2025 Ferritin Lab Routine Iron deficiency anemia, unspecified iron deficiency anemia type Expected: 09/09/2024 (Approximate), Expires: 09/09/2025 Iron And Total Iron Binding Capacity Lab Routine Iron deficiency anemia, unspecified iron deficiency anemia type Expected: 09/09/2024, Expires: 09/09/2025 documented as of this encounter Visit Diagnoses Diagnosis Leukocytosis, unspecified type- Primary Iron deficiency anemia, unspecified iron deficiency anemia type documented in this encounter Additional Health Concerns Assessment Noted Time PHQ-9 Depression Total Score: 22 024 2:30 PM EST documented as of this encounter Care Teams Attorney Relationship Specialty Start Date End Date Edith Dominguez NP [address] [place] [address] PCP - General Family Medicine 07/28/23 documented as of this encounter
--- OUTSIDE RECORDS SUMMARY | 2024-09-09 14:41 | XMS_ITS | Encounter Summary ---
Author Organization [employer] Address [address] [facility] [address] [place] [address] Care Team Providers Care Region Manager Name Role Phone Edith Dominguez HOUSEKEEPING AID Primary Care Provider [phone] Reason for Visit * Reason Onset Date Comments Nurse Triage 09/07/2024 Encounter Details Date Type Department Care Team ([facility] st Contact Info) Description 09/07/2024 Telephone 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 pt states seen ER on 08/29 at [facility] for constipation and possible UTI. pt states was given Senna for the constipation and it is working well. pt states thinks she might have a UTI as she saw her labs on the pt site. reviewed the ER notes, no actual UTI but did have some white cells and protein in her urine without bacteria. given appt Thursday with red team provider at11:45 for exam and recheck. pt states only given Senna for 2 weeks and will need something going forward. advised home care: rest, fluids, fiber, Senna as prescribed, and call back as needed. pt understands and agrees with plan. insurance verified. ER notes are in the chart for review. Protocol Used: Constipation (Adult) Protocol-Based Disposition: See in Office or Video Visit within 3 Days Video visit offer not recorded Positive Triage Question: * Patient wants to be seen * All higher-acuity triage questions were negative Care Advice Discussed: * Reassurance and Education - Constipation * General Constipation Instructions * High Fiber Diet * Drink Adequate Liquids * Reasons To Call Back - Constipation lasts more than 1 week after using Care Advice - Abdomen swelling, vomiting or fever occur - Constant or increasing abdomen pain - You think you need to be seen - You become worse * Telephone Encounter - Krystle Guzman - 09/07/2024 8:09 AM EDT Patient calling to report ED visit on : Date: Hospital: [facility] Seen for: Constipation Symptomatic Yes *if yes message should go to Triage Patient advised will forward to team nurse for follow up [phone] documented in this encounter Plan of Treatment Not on file documented as of this encounter Visit Diagnoses Not on filedocumented in this encounter Additional Health Concerns Assessment Noted Time PHQ-9 Depression Total Score: 22 024 2:30 PM EST documented as of this encounter Care Teams Region Manager Relationship Specialty Start Date End Date Edith Dominguez NP [address] [place] [address] PCP - General Family Medicine 07/28/23 documented as of this encounter
--- OUTSIDE RECORDS SUMMARY | 2024-09-09 14:41 | XMS_ITS | Encounter Summary ---
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
[2024-09-09 16:31] LABS: MANUAL DIFF FLAG NO
[2024-09-09 16:36] LABS: Basophils Percent Auto 0.4 % (0-2); Eosinophils Absolute Auto 0.1 X10*3/uL (0.0-0.4); Eosinophils Percent Auto 1.5 % (0-4); Hematocrit 29.8 % (37.0-47.0); Imm Gran Abs Auto 0.04 X10*3/uL (0.00-0.03); Imm Gran Pct Auto 0.4 % (0.0-0.4); Lymphocytes Absolute Auto 2.3 X10*3/uL (1.2-4.9); Lymphocytes Percent Auto 25.3 % (20-40); Mean Corpuscular HGB Conc 26.8 g/dl (31.0-35.0); Mean Corpuscular Hemoglobin 18.5 pg (27.0-33.0); Mean Platelet Volume 9.8 fL (9.4-12.3); Monocytes Absolute Auto 0.6 X10*3/uL (0.1-1.2); Monocytes Percent Auto 6.8 % (2-11); NRBC Pct Auto 0.3 /100WBC (0.0-0.2); Neutrophils Percent Auto 65.6 % (45-73); Platelet Count 459 X10*3/uL (160-400); Red Blood Count 4.32 X10*6/uL (4.20-5.50); Red Cell Distribution Width 18.4 % (11.0-16.0); White Blood Count 9.1 X10*3/uL (4.8-10.8)
[2024-09-09 16:55] LABS: Iron 14 mcg/dL (30-160); Percent Iron Saturation 4 % (15-50); Total Iron Binding Capacity 365 mcg/dL (228-428); Unsaturated Iron Binding 351 ug/dL
[2024-09-09 17:10] LABS: Ferritin 4 ng/mL (10-250)
== END 2024-09-09 13:10 | disposition home or self-care (01) ==
LOC: HO.HHCL 13:09
PROVIDERS: Internal Medicine; Visit Provider Registered Nurse
DX: D50.9 Iron deficiency anemia, unspecified (principal)
CPT/HCPCS: 36415; 82728; 83540; 85025

== ENCOUNTER 2025-05-23 08:11 | Outpatient (RCR) | payer OTHER, SELFPAY ==
[2025-05-23] VITALS (10 sets, daily range): BP systolic 149–187; BP diastolic 82–92; PULSE 81–91; RESP 18; TEMP 37.1; BMI 43.8
--- NOTE | 2025-05-23 08:19 | HO.INF ---
PATIENT PLACED ON MONITOR NORMAL SINUS NOTED
[2025-05-23] MEDS: Iron Dextran Complex 25 MG in 0.9 % Sodium Chloride 50 ML 202 MG IV (08:58)
--- NOTE | 2025-05-23 09:16 | HO.INF ---
TEST DOSE COMPLETED NO REACTION NOTED
[2025-05-23] MEDS: IRON DEXTRAN COMPLEX IV (11:08)
[2025-05-23] MEDS: SODIUM CHLORIDE 0.9% IV (11:08)
== END 2025-05-23 15:19 | disposition home or self-care (01) ==
LOC: HO.INF 08:11
PROVIDERS: Visit Provider Internal Medicine
DX: D50.9 Iron deficiency anemia, unspecified (principal)
CPT/HCPCS: 96365; 96366; J1750

== ENCOUNTER 2025-06-23 12:51 | Outpatient (REF) | payer OTHER, SELFPAY ==
--- NOTE | ~2025-06-23 | US_ITS ---
EXAMINATION: US KIDNEY BILATERAL HISTORY: Oliguria TECHNIQUE: Real-time grayscale ultrasound imaging of the kidneys was performed and images were reviewed. COMPARISON: Correlation is made with an abdominal ultrasound dated 06/07/2019. FINDINGS: Right kidney: The right kidney measures 12.3 x 5.4 x 4.8 cm. Renal parenchymal echotexture and thickness are normal. There are no masses. There is a nonobstructing upper pole calculus measuring 4 x 3 x 6 mm. There is no hydronephrosis. Left Kidney: The left kidney measures 12.7 x 5.6 x 4.8 cm. Renal parenchymal echotexture and thickness are normal. There are no masses. There is no hydronephrosis or renal calculi. US/US renal BI IMPRESSION: 4 x 6 x 3 mm nonobstructing right upper pole renal calculus. Otherwise unremarkable renal ultrasound. Electronically signed by: Marbin Davis MD 06/23/2025 01:19 PM [facility]
--- OUTSIDE RECORDS SUMMARY | 2025-06-23 12:54 | XMS_ITS | Clinical Summary ---
Author Organization [facility] Prior to 11/26/[address] [place] [phone] Care Team Providers Care Application Development Specialist Name Role Phone Rabia Antunez Primary Care Provider [phone] Allergies No known active allergies Medications Medication [...] 108 04/12/2018 2:25 PM EDT Temperature 37.1 C (98.8 F) 04/12/2018 2:25 PM EDT Respiratory Rate - - Oxygen Saturation - [...] (P ap Smear) 2003 Influenza Vaccine (#1) 2025 Pneumococcal Vaccine Aged Out No long er eligible based on patient's age to complete this topic RSV Ped < 20 months Aged Out No longe r eligible based on patient's age to complete this topic Care Teams Application Development Specialist Relationship Specialty Start Date End Date Rabia Antunez DO [address] [place] [phone] PCP - General Family Medicine 03/31/18
--- OUTSIDE RECORDS SUMMARY | 2025-06-23 12:54 | XMS_ITS | Clinical Summary ---
Author Organization [facility] Address [address] [place] [phone] Phone Care Team Providers Care Electrical Installer Name Role Phone Edith Dominguez RL Primary Care Provider [phone] Allergies No known active allergies Medications ALBUTEROL INHL Inhale into the lungs. Active amLODIPine-ator vastatin (CADUET) 10-10 mg per tablet Take 1 tablet by mouth 1 (one) time each day. Active ASCORBIC ACID, VITAMIN C, ORAL Take by mouth. Active lisinopriL (PRINIVIL,ZESTR IL) 20 mg tablet Take 1 tablet (20 mg total) by mouth 1 (one) time each day. Active traZODone (DESYREL) 50 mg tablet Take 1 Tablet by mouth at bedtime. Active docusate sodium (Colace) 100 mg capsule Take 1 capsule (100 mg total) by mouth 2 (two) times a day if needed for constipation . 180 each 04/19/2025 Active tirzepatide, weight loss, (Zepbound) 10 mg/0.5 mL injection Inject 0.5 mL (10 mg total) under the skin every 7 (seven) days. 2 mL 05/29/2025 Active Active Problems Problem Noted Date Diagnosed Date Class 3 severe obesity due t o excess calories with serious comorbidity and body mass index (BMI) of 45.0 to 49.9 in adult 04/14/2024 Allergic rhinitis 06/15/2018 Anemia 06/15/2018 Diabetes mellitus 06/15/2018 Generalized anxiety disorder 06/15/2018 High blood pressure 06/15/2018 Insomnia 06/15/2018 Major depressive disorder 06/15/2018 Skin lesion 06/15/2018 Vitamin D deficiency 06/15/2018 Medical History Medical History Date Comments Hypertension [...] Sign Reading Time Taken Comments Blood Pressure 165/95 03/21/2025 1:49 PM EDT Pulse 103 03/21/2025 1:49 PM EDT Temperature 36.3 C (97.4 F) 03/21/2025 1:49 PM EDT Respiratory Rate 20 08/29/2024 2:32 PM EST Oxygen Saturation 98% 08/29/2024 2:32 PM EST Inhaled Oxygen Concentration - - Weight 98.4 kg (217 lb) 03/21/2025 1:49 PM EDT Height 149.9 cm (4' 11 ) 03/21/2025 1:49 PM EDT Body Mass Index 43.83 03/21/2025 1:49 PM EDT Plan of Treatment Upcoming Encounters Date Type Department Care Team (Late st Contact Info) Description 08/23/2025 2:00 PM EST Office Visit Bariatric Surgery - [address] [place] [address] Aleah Reynolds PA [address] [place] [phone] Health Maintenance Due Date Last Done Comments Breast Cancer Screening 1982 Diabetes: Annual Foot Exam 1992 Diabetes: Annual Retina Eye Exam 1992 Hepatitis B Vaccines (1 of 3 - 19+ 3-dose series) 2001 Pneumococcal Vaccine: Pediatrics (0 to 5 Years) and At-Risk Patients (6 to 49 Years) (1 of 2 - PCV) 2001 Cervical Cancer Screening: P ap Smear 2003 HPV Vaccines (1 - 3-dose SCD M series) 2009 HIV Screening 05/28/2022 Hepatitis C Screening 05/28/2022 Medicare Annual Wellness Visit 05/28/2022 Social Influencers of Health Screening 05/28/2022 Diabetes: Annual Urine Albumin-Creatinine Ratio (uACR) 06/13/2022 DTaP,Tdap,and Td Vaccines (2 - Td or Tdap) 05/02/2023 05/02/2013 Diabetes: Blood Sugar Contro l Test (HGBA1C) 05/20/2024 11/18/2023, 11/18/2023 Depression Screening 06/29/2024 COVID-19 Vaccine (2024-2 6 season) 2025 Influenza Vaccine (#1) 2025 05/02/2013 Diabetes: Annual GFR (Glomerular Filtration Rate) 08/29/2025 08/29/2024, 11/18/2023, 11/18/2023 Hypertension/CHF/CAD Annual BMP Blood Test 08/29/2025 08/29/2024, 11/18/2023, 11/18/2023 Cholesterol Screening (Lipid Panel) 11/17/2028 11/18/2023, 11/18/2023 RSV Immunization Adult Patients (1 - 1-dose 75+ series) 2057 HIB [...] age to complete this topic Meningococcal B Vaccine Aged Out No l onger eligible based on patient's age to complete this topic RSV Immunization Patients Under 20 months Aged Out No longer eligible b ased on patient's age to complete this topic Varicella Vaccines Aged Out No longer eligible based on patient's age to complete this topic Procedures Procedure Name Priority Date/Time Associated Diagnosis Comments COMPREHENSIVE METABOLIC PANEL STAT 08/29/2024 8:28 AM EST HEMOGLOBIN A1C Routine 11/18/2023 LIPID PANEL Routine 11/18/2023 from Last 3 Months or Most Recently Relevant to Health Maintenance Results * (ABNORMAL) Comprehensive metabolic panel (08/29/2024 8:28 AM EST) Sodium 139 133 - 145 mmol/L LAB CHEMISTRY METHOD 08/29/2024 9:53 AM [facility] Potassium 4.3 3.5 - 5.5 mmol/L LAB CHEMISTRY METHOD 08/29/2024 9:53 AM [facility] Chloride 108 96 - 110 mmol/L LAB CHEMISTRY METHOD 08/29/2024 9:53 AM [facility] CO2 21 21 - 32 mmol/L LAB CHEMISTRY METHOD 08/29/2024 9:53 AM [facility] Anion Gap 10 3 - 11 LAB CHEMISTRY METHOD 08/29/2024 9:53 AM [facility] Glucose 94 70 - 100 mg/dL LAB CHEMISTRY METHOD 08/29/2024 9:53 AM [facility] BUN 15 5 - 25 mg/dL LAB CHEMISTRY METHOD 08/29/2024 9:53 AM [facility] Creatinine 0.52 0.50 - 1.10 mg/dL LAB CHEMISTRY METHOD 08/29/2024 9:53 AM [facility] eGFR 119 >=60 mL/min/1. 73m2 LAB CHEMISTRY METHOD 08/29/2024 9:53 AM [facility] Comment:Calculation based on the Chronic Kidney Disease Epidemiology Collaboration (CKD-EPI) equation refit without adjustment for race. BUN/Creatinine Ratio 28.8 LAB CHEMISTRY METHOD 08/29/2024 9:53 AM [facility] Calcium 10.1 8.5 - 10.5 mg/dL LAB CHEMISTRY METHOD 08/29/2024 9:53 AM [facility] AST (SGOT) 24 10 - 42 unit/L LAB CHEMISTRY METHOD 08/29/2024 9:53 AM [facility] ALT (SGPT) 20 10 - 60 unit/L LAB CHEMISTRY METHOD 08/29/2024 9:53 AM [facility] Alkaline Phosphatase 74 42 - 121 unit/L LAB CHEMISTRY METHOD 08/29/2024 9:53 AM [facility] Total Protein 8.7(H) 6.0 - 8.0 g/dL LAB CHEMISTRY METHOD 08/29/2024 9:53 AM [facility] Albumin 4.3 3.2 - 5.0 g/dL LAB CHEMISTRY METHOD 08/29/2024 9:53 AM [facility] Total Bilirubin 0.7 0.0 - 1.4 mg/dL LAB CHEMISTRY METHOD 08/29/2024 9:53 AM [facility] Blood Venous blood specimen / Unknown Venipuncture / Unknown 08/29/2024 8:28 AM EST 08/29/2024 9:19 AM EST Hina Ramos DO LAB BLOOD ORDERABLES Shaila l Result [facility] [address] [place] [address], * Hemoglobin A1c (11/18/2023) Pathologist [facility] Hemoglobin A1C 5.1 <=6.5 % Blood Venous blood specimen / Unknown Historical Provider LAB BLOOD ORDERABLES Shaila l Result * (ABNORMAL) Lipid panel (11/18/2023) Pathologist [facility] LDL/HDL Ratio 4 0 - 4 Triglycerides 196(A) 0 - 150 mg/dL Cholesterol 193 0 - 200 mg/dL HDL 53 >=40 mg/dL LDL Cholesterol 101(A) 0 - 100 mg/dL Blood Venous blood specimen / Unknown us Historical Provider LAB BLOOD ORDERABLES Shaila l Result from Last 3 Months or Most Recently Relevant to Health Maintenance Insurance [facility] MEDIC[facility] Member Subscriber Plan / Payer (Ef fective 2020-Present) Name:JI MICHEL Relation to Subscriber:Self Name:Ji Michel Payer ID:[id number] Group ID:[id number] Type:Not on file Address: [place] [address] [place] [id number] Care Teams Electrical Installer Relationship Specialty Start Date End Date Edith Dominguez FNP [address] [place] [id number] PCP - General Nurse Practitioner 09/07/24
--- OUTSIDE RECORDS SUMMARY | 2025-06-23 12:54 | XMS_ITS | Encounter Summary ---
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 Not on file Not on file documented as of this encounter Plan of Treatment Upcoming Encounters Date Type Department Care Team (Late st Contact Info) Description 07/19/2025 10:45 AM EST Office Visit [facility] [address] [place] [phone] Edith Dominguez NP [address] [place] [address] documented as of this encounter Visit Diagnoses Not on filedocumented in this encounter Additional Health Concerns Assessment Noted Time PHQ-9 Depression Total Score: 22 024 2:30 PM EST documented as of this encounter Care Teams Color Stripper Relationship Specialty Start Date End Date Edith Dominguez NP [address] [place] [address] PCP - General Family Medicine 07/28/23 documented as of this encounter
--- OUTSIDE RECORDS SUMMARY | 2025-06-23 12:54 | XMS_ITS | Clinical Summary ---
Author Organization [employer] Address [address] [facility] [address] 7[address] [place] [address] Care Team Providers Care Pulmonary Physician Name Role Phone Angelica Edith XAVI Primary Care Provider [phone] Allergies No known active allergies Medications * This document contains information received from the source organization and may not represent a complete record from that organization. lisinopril 20 MG tabletIndicatio ns:Hypertension , unspecified type TAKE 1 TABLET (20 MG) BY MOUTH ONCE PER DAY. 90 tablet 3 5 Active escitalopram (Lexapro) 5 MG tabletIndicatio ns:LYNDA (generalized anxiety disorder) TAKE 1 TABLET BY MOUTH EVERY DAY IN THE MORNING 90 tablet 1 5 Active Ascorbic Acid (vitamin C) 500 MG tabletIndicatio ns:Other iron deficiency anemia TAKE 1 TABLET (500 MG) BY MOUTH EVERY OTHER DAY. 45 tablet 1 5 Active amLODIPine (Norvasc) 10 MG tabletIndicatio ns:Hypertension , unspecified type TAKE 1 TABLET BY MOUTH EVERY DAY IN THE MORNING 90 tablet 1 5 Active ferrous gluconate (Fergon) 324 (38 Fe) MG tabletIndicatio ns:Other iron deficiency anemia TAKE 1 TABLET BY MOUTH EVERY OTHER DAY WITH VITAMIN C 45 tablet 1 5 Active traZODone (Desyrel) 50 MG tabletIndicatio ns:Psychophysio logical insomnia TAKE 1 TABLET BY MOUTH EVERYDAY AT BEDTIME 90 tablet 1 5 Active albuterol (2.5 MG/3ML) 0.083% nebulizer solution TAKE 3 ML BY NEBULIZATION ROUTE EVERY 6 HOURS NEEDED FOR WHEEZING 75 mL 11 5 Active Active Problems Problem Noted Date Diagnosed Date Gestational diabetes 04/09/2024 Lupus anticoagulant disorder 04/09/2024 Recurrent loss 04/09/2024 Status post delivery 04/09/2024 Morbid obesity (CMS/HCC) 04/09/2024 Uterine leiomyoma 10/25/2023 Assessment & Plan (10/27/2023 5:31 PM EDT): Referral to construction supervisor , pevlic ultrasound demonstrates fibroids and thickened [...] (10/06/2023 11:03 AM EDT): Upcoming consultation with construction supervisor, reviewed hormonal options for menstrual bleeding management Assessment & Plan (09/21/2023 6:43 PM EDT): Reviewed potential sources, pt declines TELEVISION WRITER referral today until imaging completed. If DUB is source of bleeding, reviewed options for management, Rtc in 2 weeks Asthma with status asthmaticus 09/14/2023 Mild intellectual disabilities 07/28/2023 Overview (07/28/2023): per pt report Encounters Date Type Department Care Team Description 05/30/2025 Telephone [facility] [address] [place] [address] Edith Dominguez NP OUTREACH 05/19/2025 Refill [facility] [address] [place] [address] Edith Dominguez NP LYNDA (generalized anxiety disorder); Other iron deficiency anemia; Hypertension, unspecified type; Psychophysiological insomnia 05/19/2025 Refill [facility] [address] [place] [address] Pro Armstrong MD from Last 3 Months Immunizations Immunization Administration Dates Next Due Influenza, IIV3, injectable [...] 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 file Not on file Last Filed Vital Signs Vital Sign Reading Time Taken Comments Blood Pressure 165/98 09/09/2024 12:11 PM EDT Pulse 100 09/09/2024 12:11 PM EDT Temperature 36.9 C (98.4 F) 09/09/2024 12:11 PM EDT Respiratory Rate 20 09/09/2024 12:11 PM EDT Oxygen Saturation 99% 09/09/2024 12:11 PM EDT Inhaled Oxygen Concentration - - Weight 105 kg (231 lb 6.4 oz) 09/09/2024 12:11 P M EDT Height 149.9 cm (4' 11 ) 09/09/2024 12:11 PM EDT Body Mass Index 46.74 09/09/2024 12:11 PM EDT Plan of Treatment Upcoming Encounters Date Type Department Care Team (Late st Contact Info) Description 07/19/2025 10:45 AM EST Office Visit [facility] [address] [place], [place] [phone] Edith Dominguez NP [address] [place] [address] Health Maintenance Due Date Last Done Comments HIV Screening 1982 Lipid Panel 1982 Disability Screening 1982 Alcohol/Substance Use Screening 1994 Family Planning (PISQ) 1997 HPV Vaccines (1 - 3-dose series) 1997 Hepatitis C Screening 2000 Hepatitis B Vaccines (1 of 3 - 19+ 3-dose series) 2001 Pneumococcal Vaccine: Pediatrics (0 to 5 Years) and At-Risk Patients (6 to 49) Years (1 of 2 - PCV) 2001 Pap Smear 2003 Cervical Cancer Screening 2012 HPV/Cotest 2012 Mammogram 2022 DTaP/Tdap/Td Vaccines (2 - T d or Tdap) 05/02/2023 05/02/2013 Depression Monitoring 01/26/2024 07/28/2023 , 07/28/2023 SDOH Screening 07/28/2024 07/28/2023 COVID-19 Vaccine (1 - 2024-2 6 season) 2025 Influenza Vaccine (#1) 2025 05/02/2013 Tobacco Screening 09/14/2025 09/14/2024 Zoster Vaccines (1 of 2) 2032 RSV [...] patient's age to complete this topic Insurance [facility] CARE < 65 [place] [id number] Care Teams Pulmonary Physician Relationship Specialty Start Date End Date Edith Dominguez NP [address] [place] [phone] PCP - General Family Medicine 07/28/23
--- OUTSIDE RECORDS SUMMARY | 2025-06-23 12:54 | XMS_ITS | Encounter Summary ---
Author Organization [employer] Address [address] [facility] [address] 7[address] [place] [address] Care Team Providers Care Bus Aide Name Role Phone Edith Dominguez NP Primary Care Provider [phone] Encounter Details Date Type Department Care Team (Late st Contact Info) Description 07/28/2023 Abstract [facility] [address] [place], [place] [phone] Edith Dominguez NP [address] [place], [place] [phone] Social History Tobacco Use Types Packs/Day Years [...] your housing situation today? 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 Not on file documented as of this encounter Plan of Treatment Upcoming Encounters Date Type Department Care Team (Late st Contact Info) Description 07/19/2025 10:45 AM EST Office Visit [facility] [address] [place] [address] Edith Dominguez NP [address] [place] [address] documented as of this encounter Visit Diagnoses Not on filedocumented in this encounter Additional Health Concerns Assessment Noted Time PHQ-9 Depression Total Score: 22 024 2:30 PM EST documented as of this encounter Care Teams Bus Aide Relationship Specialty Start Date End Date Edith Dominguez NP [address] [place] [address] PCP - General Family Medicine 07/28/23 documented as of this encounter
--- OUTSIDE RECORDS SUMMARY | 2025-06-23 12:54 | XMS_ITS | Encounter Summary ---
Author Organization [employer] [facility] Address [address] [facility] [address] 7[address] [place] [address] Care Team Providers Care Diesel Engine Inspector Name Role Phone Edith Dominguez NP Primary Care Provider [phone] Reason for Visit * Reason Comments Med Change Request Encounter Details Date Type Department Care Team ([facility] st Contact Info) Description 09/21/2023 Refill [facility] MEDICINE [address] [place], [place] [phone] Edith Dominugez NP [address] [place], [place] [phone] Other iron deficiency anemia Social History Tobacco [...] 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 Not on file Not on file documented as of this encounter Plan of Treatment Upcoming Encounters Date Type Department Care Team (Late st Contact Info) Description 07/19/2025 10:45 AM EST Office Visit [facility] MEDICINE [address] [place] [phone] Edith Dominguez NP [address] [place] [address] documented as of this encounter Visit Diagnoses Diagnosis Other iron deficiency anemia documented in this encounter Additional Health Concerns Assessment Noted Time PHQ-9 Depression Total Score: 22 024 2:30 PM EST documented as of this encounter Care Teams Diesel Engine Inspector Relationship Specialty Start Date End Date Edith Dominguez NP [address] [place] [address] PCP - General Family Medicine 07/28/23 documented as of this encounter
--- OUTSIDE RECORDS SUMMARY | 2025-06-23 12:54 | XMS_ITS | Encounter Summary ---
Author Organization [employer] Address [address] [facility] 7t [place] [address] Care Team Providers Care Manager Activities Name Role Phone Edith Dominguez NP Primary Care Provider [phone] Reason for Visit * Reason Onset Date Comments Appointment Request 09/13/2024 Encounter Details Date Type Department Care Team ([facility] st Contact Info) Description 09/13/2024 Telephone [facility] [address] [place], [place] [phone] Edith Dominguez NP [address] [place], [place] [phone] Appointment Request Social History Tobacco Use Types Packs/Day Years [...] 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 Even though pt was seen for a ED Follow up. Pt is Very adamant to getting a Apt with PCP. Pt wants a Sooner Apt than May. Cattle Alley Worker Advised pt would leave a Message. Contact pt at [phone] documented in this encounter Plan of Treatment Upcoming Encounters Date Type Department Care Team (Late st Contact Info) Description 07/19/2025 10:45 AM EST Office Visit [facility] [address] [place] [address] Edith Dominguez NP [address] [place] [address] documented as of this encounter Visit Diagnoses Not on filedocumented in this encounter Additional Health Concerns Assessment Noted Time PHQ-9 Depression Total Score: 22 024 2:30 PM EST documented as of this encounter Care Teams Manager Activities Relationship Specialty Start Date End Date Edith Dominguez NP [address] [place] [address] PCP - General Family Medicine 07/28/23 documented as of this encounter
== END 2025-06-23 12:52 | disposition home or self-care (01) ==
LOC: HO.US 12:51
PROVIDERS: PCP Nurse Practitioner Family; Visit Provider Internal Medicine
DX: R34 Anuria and oliguria (principal)
CPT/HCPCS: 76775

== ENCOUNTER → 2025-06-23 12:52 | Outpatient (BNV) | payer OTHER, SELFPAY | PROVIDERS: PCP Nurse Practitioner Family; Visit Provider Radiology Diagnostic Radiology | DX: N20.0 Calculus of kidney (principal) | CPT/HCPCS: 76775 ==